=== PATIENT | male | born 1960 | race Caucasian/White ===

== ENCOUNTER → 2017-10-18 16:14 | Outpatient (CLI) | payer OTHER, SELFPAY ==
[2017-10-18 18:25] LABS: PSA,Total - Annual Screen 0.33 ng/mL (0.00-4.00)
== END ==
PROVIDERS: Family Provider Family Medicine; PCP Family Medicine
DX: D40.0 Neoplasm of uncertain behavior of prostate (principal)
CPT/HCPCS: 36415; 84153; G0103

== ENCOUNTER → 2018-07-01 14:52 | Outpatient (CLI) | payer OTHER, SELFPAY ==
[2018-07-01 17:54] LABS: Prothrombin Time (Protime)PT. 13.3 SECONDS (11.7-14.9)
[2018-07-01 17:59] LABS: ALB/GLOB Ratio 1.2 RATIO (0.9-2.4); AST(SGOT) 19 U/L (15-37); Absolute Lymphocyte Count 1.43 X10^3/ul (0.83-4.51); Absolute Neutrophil Count 2.9 X10^3/uL (2.0-7.7); Alanine Aminotransfer ALT/SGPT 25 U/L (16-61); Alkaline Phosphatase 103 U/L (45-117); Anion Gap 10 (5-15); BUN 24 mg/dL (7-18); BUN/Creat Ratio 16.4 RATIO (10-20); Basophil# 0.02 X10^3/uL; Basophil% 0.4 % (0-1); Calcium,Total 9.1 mg/dL (8.5-10.1); Chloride 107 mmol/L (98-107); Creatinine, Serum 1.46 mg/dL (0.70-1.30); EST Glomerular Filtration Rate 52 mL/min (>60); Eosinophils% 1.9 % (0-5); Est Glom Filt Rate - Afr Amer 63 mL/min (>60); Globulin 3.2 g/dL (2.2-4.2); Glucose 81 mg/dL (74-106); Hematocrit 41.6 % (40-54); Hemoglobin 13.7 g/dl (13.0-16.5); Lymphocyte # 1.43 X10^3/ul (4.0); Lymphocyte % 27.5 % (19-41); Mean Corp Hgb Conc 32.9 g/gl (32-36); Mean Corpuscular Hgb 30.5 pg (27.0-32.0); Mean Corpuscular Volume 92.7 fL (80-94); Mean Platelet Vol. 9.5 fl (6.2-12.0); Monocyte# 0.71 X10^3/uL; Monocyte% 13.7 % (0-10); Neutrophil # 2.94 X10^3/uL (2.7-7.7); Neutrophil % 56.5 % (47-70); Platelet Count 201 K/mm3 (150-450); Potassium 3.8 mmol/L (3.5-5.1); Protein, Total 7.2 g/dL (6.4-8.2); RBC Distribution Width CV 12.9 % (11.6-14.6); RBC Distribution Width SD 43.4 fl (35.1-43.9); Red Blood Count 4.49 M/mm3 (4.6-6.2); Sodium Level 141 mmol/L (136-145); White Blood Count 5.2 K/mm3 (4.4-11.0)
[2018-07-01 18:12] LABS: POSITIVE COUNT NO; POSITIVE DIFFERENTIAL NO; POSITIVE MORPHOLOGY NO
[2018-07-01 18:20] LABS: Erythrocyte Sedimentation Rate 19 mm/hr (0-20)
[2018-07-04 15:52] LABS: ANTINUCLEAR ANTIBODIES DIRECT Positive (Negative)
== END ==
PROVIDERS: Family Provider Family Medicine; PCP Family Medicine; Visit Provider Family Medicine
DX: R94.4 Abnormal results of kidney function studies (principal); R23.3 Spontaneous ecchymoses
CPT/HCPCS: 36415; 80053; 85025; 85610; 85652; 85730; 86038

== ENCOUNTER → 2018-07-20 16:18 | Outpatient (CLI) | payer OTHER, SELFPAY ==
[2016-02-03 06:23] VITALS: BMI 23.7
[2018-07-20 19:38] LABS: Ferritin 279 ng/mL (26-388); Thyroid Stim Hormone (TSH) 2.63 uIU/mL (0.358-3.74)
[2018-07-22 14:48] LABS: Anti-Centromere B Ab <0.2 AI (0.0-0.9); Anti-Chromatin <0.2 AI (0.0-0.9); Anti-Jo <0.2 AI (0.0-0.9); Anti-Scleroderma-70 AB <0.2 AI (0.0-0.9); Anti-ribosomal P Antibodies <0.2 AI (0.0-0.9); RNP Ab <0.2 AI (0.0-0.9); SJOGREN'S Anti-SS-A test < 0.2 AI (0.0-0.9); SJOGREN'S Anti-SS-B test 1.3 AI (0.0-0.9); Smith Ab <0.2 AI (0.0-0.9); Smith/RNP Ab <0.2 AI (0.0-0.9)
[2018-07-22 15:01] LABS: Anti-dsDNA Ab <1 IU/mL (0-9)
--- OUTSIDE RECORDS SUMMARY | 2018-09-05 21:53 | XMS RPT_ITS ---
:1960 Author Organization OHIP Care Team Providers Name Role Phone Aakash Stafford Attending Unavailable Aakash Stafford Primary Care Unavailable VINAY HOOK Attending Unavailable VINAY HOOK Referring Unavailable Aakash Stafford Primary Care Unavailable Hakeem Leon Attending Unavailable Aakash Stafford Primary Care Unavailable PROBLEMS PROBLEMS DATE TYPE CONDITION / CODE ATTENDING STATUS SOURCE 07/20/2018 Unknown I73.00 - Raynaud's Aakash Stafford Active [place] syndrome without [facility] gangrene / Hospital I73.00(ICD-10) Repository 07/20/2018 Unknown R76.8 - Other Stafford, Aakash Active [place] specified abnormal Community [facility] Hospital findings in serum / Repository R76.8(ICD-10) 10/18/2017 Unknown 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 [place], [place], [address] FERRITIN Collected: 07/20/2018 Status: F Source: [place] 4:19 PM [facility] REPOSITORY TYPE CODE TESTS RESULT OUT OF RANGE REFERENCE UNITS LAB L503.6550 26-388 ng/mL Normal FERRITIN 279 Performed By: #### L501.9520, L503.6550 #### [facility] [address] [place], [address] TONY W/COMPREHENSIVE Collected: 07/20/2018 Status: F Source: [place] 4:19 PM [facility] REPOSITORY TYPE CODE TESTS RESULT OUT OF RANGE REFERENCE UNITS LAB L3100.5500 0-9 IU/mL Normal dsDNA AB <1 Result Comment: Negative <5 Equivocal 5 - 9 Positive >9 LAB L3100.9200 0.0-0.9 AI Anti-SS-A Normal < 0.2 LAB L3100.9300 0.0-0.9 AI Anti-SS-B High 1.3 LAB L3100.9400 0.0-0.9 AI Anti-P Normal <0.2 LAB L3410.0427 0.0-0.9 AI ANTICHROMATIN Normal <0.2 LAB L3410.0500 0.0-0.9 AI ANTI-MARCE Normal <0.2 LAB L3410.0700 0.0-0.9 AI ANTISCLER Normal <0.2 LAB L3410.1200 0.0-0.9 AI OPTICAL DESIGN ENGINEER Ab Normal <0.2 LAB L3410.1300 0.0-0.9 AI STAFFORD Ab Normal <0.2 LAB L3410.1310 0.0-0.9 AI STAFFORD/OPTICAL DESIGN ENGINEER Ab Normal <0.2 LAB L3410.4010 0.0-0.9 AI ANTI-CENT B Normal <0.2 LAB L3410.4100 . COMMENT Normal Comment Result Comment: Autoantibody Disease Association Condition Frequency Antinuclear Antibody, SLE, mixed connective Direct (TONY-D) tissue diseases dsDNA SLE 40 - 60% Chromatin Drug induced SLE 90% SLE 48 - 97% SSA (Ro) SLE 25 - 35% Sjogren's Syndrome 40 - 70% Lupus 100% SSB (La) SLE 10% Sjogren's Syndrome 30% Sm (anti-Stafford) SLE 15 - 30% OPTICAL DESIGN ENGINEER Mixed Connective Tissue Disease 95% (U1 nRNP, SLE 30 - 50% anti-ribonucleoprotein) Polymyositis and/or Dermatomyositis 20% Scl-70 (antiDNA Scleroderma (diffuse) 20 - 35% topoisomerase) Crest 13% Marce-1 Polymyositis and/or Dermatomyositis 20 - 40% Centromere B Scleroderma - Crest variant 80% Ribosomal P SLE 10 - 20% Performed at: - [facility] [id number] [employer] Development: Sunday Bain PhD, Phone: [phone] Performed By: #### L3100.5430 #### [facility] (refer to report for specific site) refer to report for address and phone number COMPREHENSIVE METABOLIC Collected: 07/01/2018 Status: F Source: [place] PROFIL 2:53 PM [facility] REPOSITORY TYPE CODE TESTS RESULT OUT OF RANGE REFERENCE UNITS LAB L501.0100 74-106 mg/dL Normal GLU 81 Result Comment: Please note revised GLUCOSE reference range effective 2017. LAB L501.1000 7-18 mg/dL High BUN 24 LAB L501.1100 0.70-1.30 mg/dL High CREAT,SERUM 1.46 Result Comment: The validity of the calculated GFR AND GFRAA in patients over 70 years has not been determined. Clinical correlation is essential. LAB L501.1110 >60 mL/min Low EST GFR 52 Result Comment: Non- GFR Calc LAB L501.1115 >60 mL/min Normal EST GFR - AA 63 Result Comment: GFR Calc LAB L501.1300 10-20 RATIO Normal BUN/CRE 16.4 LAB L501.1500 6.4-8.2 g/dL T Normal PROT 7.2 LAB L501.1800 3.2-5.0 g/dL Normal ALB 4.0 LAB L501.1950 2.2-4.2 g/dL Normal GLOB 3.2 LAB L501.2000 0.9-2.4 RATIO Normal A/G 1.2 LAB L501.2200 8.5-10.1 mg/dL CA Normal 9.1 LAB L501.4100 15-37 U/L Normal AST 19 LAB L501.4305 45-117 U/L Normal ALK P 103 LAB L501.4405 16-61 U/L Normal ALT 25 LAB L501.4600 0.20-1.00 mg/dL T Normal BILI 0.40 LAB L501.5300 136-145 mmol/L NA Normal 141 LAB L501.5600 3.5-5.1 mmol/L K Normal 3.8 LAB L501.5900 98-107 mmol/L CL Normal 107 LAB L501.6100 21.0-32.0 mmol/L Normal CO2 24.0 LAB L501.6200 5-15 Normal GAP 10 Performed By: #### L500.4050, L300.3900, L300.4310, L100.0100, L101.9900 #### [facility] [address] [place], [place], [address] #### L3100.5475 #### [facility] (refer to report for specific site) refer to report for address and phone number PROTHROMBIN TIME W/INR Collected: 07/01/2018 Status: F Source: [place] 2:53 PM [facility] REPOSITORY TYPE CODE TESTS RESULT OUT OF RANGE REFERENCE UNITS LAB L300.4150 11.7-14.9 SECONDS Normal PROTIME 13.3 LAB L300.4200 Normal INR 1.0 Performed By: #### L500.4050, L300.3900, L300.4310, L100.0100, L101.9900 #### [facility] [address] [place], [address] #### L3100.5475 #### [facility] (refer to report for specific site) refer to report for address and phone number PARTIAL THROMBOPLAST Collected: 07/01/2018 Status: F Source: [place] TIME 2:53 PM [facility] REPOSITORY TYPE CODE TESTS RESULT OUT OF RANGE REFERENCE UNITS LAB L300.4310 24.1-36.2 Seconds Normal PTT 31.0 Performed By: #### L500.4050, L300.3900, L300.4310, L100.0100, L101.9900 #### [facility] [address] [place], [address] #### L3100.5475 #### [facility] (refer to report for specific site) refer to report for address and phone number CBC W/DIFF, AUTOMATED Collected: 07/01/2018 Status: F Source: [place] 2:53 PM [facility] REPOSITORY TYPE CODE TESTS RESULT OUT OF RANGE REFERENCE UNITS LAB L100.1000 4.4-11.0 K/mm3 Normal WBC 5.2 LAB L100.1200 4.6-6.2 M/mm3 Low RBC 4.49 LAB L100.1300 13.0-16.5 g/dl Normal HGB 13.7 LAB L100.1400 40-54 % Normal HCT 41.6 LAB L100.1500 80-94 fL Normal MCV 92.7 LAB L100.1600 27.0-32.0 pg Normal MCH 30.5 LAB L100.1700 32-36 g/gl Normal MCHC 32.9 LAB L100.1810 11.6-14.6 % Normal RDW CV 12.9 LAB L100.1820 35.1-43.9 fl Normal RDW SD 43.4 LAB L100.1900 150-450 K/mm3 Normal PLT 201 LAB L100.2000 6.2-12.0 fl Normal MPV 9.5 LAB L100.2100 47-70 % Normal NEUT% 56.5 LAB L100.2200 19-41 % Normal LY% 27.5 LAB L100.2300 0-10 % High MONO% 13.7 LAB L100.2400 0-5 % Normal EO% 1.9 LAB L100.2500 0-1 % Normal BASO% 0.4 LAB L100.2550 0.0-0.9 % Normal IM GRAN % 0.000 Result Comment: IG% - Immature Granulocytes (promyelocytes, myelocytes and metamyelocytes) > 1% indicates that a LEFT SHIFT is Present. LAB L100.2620 2.0-7.7 X10 3/uL Normal Absolute Neut 2.9 LAB L100.2720 0.83-4.51 X10 3/ul Normal Absolute Lymph 1.43 Performed By: #### L500.4050, L300.3900, L300.4310, L100.0100, L101.9900 #### [facility] [place], [address] #### L3100.5475 #### [facility] (refer to report for specific site) refer to report for address and phone number ERYTHROCYTE SED RATE Collected: 07/01/2018 Status: F Source: [place] 2:53 PM [facility] REPOSITORY TYPE CODE TESTS RESULT OUT OF RANGE REFERENCE UNITS LAB L102.0000 0-20 mm/hr Normal SED RATE 19 Performed By: #### L500.4050, L300.3900, L300.4310, L100.0100, L101.9900 #### [facility] [address] [facility] [place], [address] #### L3100.5475 #### [facility] (refer to report for specific site) refer to report for address and phone number ANTINUCLEAR ANTIBODIES Collected: 07/01/2018 Status: F Source: [place] DIRECT 2:53 PM [facility] REPOSITORY TYPE CODE TESTS RESULT OUT OF REFERENCE UNITS RANGE LAB L3100.5475 Negative High Positive TONY-DIRECT Result Comment: Performed at: [facility] [id number] Teacher [employer] Child[employer] Development: Sunday Bain PhD, Phone: [phone] Performed By: #### L500.4050, L300.3900, L300.4310, L100.0100, L101.9900 #### [facility] [address] [place], [place], [address] #### L3100.5475 #### [facility] (refer to report for specific site) refer to report for address and phone number PSA,TOTAL - ANNUAL Collected: 10/18/2017 Status: F Source: [place] SCREEN 4:34 PM [facility] REPOSITORY TYPE CODE TESTS RESULT OUT OF RANGE REFERENCE UNITS LAB L501.9910 0.00-4.00 ng/mL Normal PSA,TOT 0.33 SCREEN Result Comment: This test was performed using the TPSA assay method for the finalsite chemistry system. Values obtained with different assay methods cannot be used interchangably. When changing PSA assays in the course of monitoring a patient, additional sequential testing should be carried out to confirm baseline values. Performed By: #### L501.9910 #### [facility] [address] [facility] [place], [address] ALLERGIES ALLERGIES DATE TYPE / CODE NAME / CODE REACTION SEVERITY SOURCE 02/03/2016 Drug No Known Unknown [facility] Allergy/4160 Allergies/F00 [facility] 94231(SNOMED [id number](RXNOR Repository CT) M) ENCOUNTERS ENCOUNTERS ADMIT/DISCHARGE ACCOUNT ADMITTING ENCOUNTER LOCATION SOURCE NUMBER CLASS 07/20/2018 [id number] [facility] [place] 2 [facility] ing:MFPLAB Repository 07/01/2018 [id number] [facility] [place] 7 [facility] ing:MFPLAB Repository 10/18/2017 [id number] [facility] [place] 3 [facility] ing:LAB Repository PAYERS PAYERS ENCOUNTER GUARANTOR PAYER SUBSCRIBER SOURCE 07/20/2018 Gareth Jacob Primary Gareth S [place] [id number] Insurance:[facility] [place] [place] [facility] Number: [id number] [id number]: [phone] [id number] Repository [phone] () Date:[id number] [address]EQ: 07/20/2018 Secondary NOT GIVENUNK [place] Insurance:SELF PAY [facility] Number: Effective Repository Date:2018-07-20 07/01/2018 Gareth Jacob Primary Gareth Roa [id number] Insurance:AULTCAREPol HimaugDOB: [place] icy Number: [id number] [address]Lht: 330 [id number] Repository [phone] () Date:[id number] [facility] [address] [place] [address]GG: 07/01/2018 Secondary NOT GIVENUNK [place] Insurance:SELF PAY [facility] Number: Effective Repository Date:2018-07-01 10/18/2017 Gareth S Primary Gareth Roa [id number] [place] Insurance:AULTCAREPol [place]D[facility] [place] Number: [id number] [address]Ics: [phone] [id number] Repository [phone] () Date:[id number] [address] [address]ZC: 10/18/2017 Secondary NOT GIVENUNK [place] Insurance:SELF PAY [facility] Number: Effective Repository Date:2017-10-18
== END ==
PROVIDERS: Family Provider Family Medicine; PCP Family Medicine; Visit Provider Family Medicine
DX: I73.00 Raynaud's syndrome without gangrene (principal); R76.8 Other specified abnormal immunological findings in serum
CPT/HCPCS: 36415; 82728; 84443; 86038; 86225; 86235

== ENCOUNTER → 2018-09-09 10:10 | Outpatient (CLI) | payer OTHER, SELFPAY ==
[2018-09-09 11:19] LABS: EXAGEN MAILED SPECIMEN
[2018-09-09 12:11] LABS: Absolute Lymphocyte Count 1.39 X10^3/ul (0.83-4.51); Absolute Neutrophil Count 2.5 X10^3/uL (2.0-7.7); Basophil# 0.03 X10^3/uL; Basophil% 0.7 % (0-1); Color, Urine Yellow (Yellow); Eosinophil# 0.14 X10^3/uL; Eosinophils% 3.1 % (0-5); Glucose, Dipstick Normal (Normal); Hematocrit 43.8 % (40-54); Hemoglobin 14.7 g/dl (13.0-16.5); Ketone-Dipstick Negative (Negative); Leukocyte Esterase-Dipstick Negative /ul (Negative); Lymphocyte # 1.39 X10^3/ul (4.0); Lymphocyte % 30.8 % (19-41); Mean Corp Hgb Conc 33.6 g/gl (32-36); Mean Corpuscular Hgb 31.1 pg (27.0-32.0); Mean Corpuscular Volume 92.6 fL (80-94); Mean Platelet Vol. 9.4 fl (6.2-12.0); Monocyte# 0.49 X10^3/uL; Monocyte% 10.8 % (0-10); Neutrophil # 2.47 X10^3/uL (2.7-7.7); Neutrophil % 54.6 % (47-70); Nitrite-Dipstick Negative (Negative); Occult Blood-Urine 25 /ul (Negative); Platelet Count 200 K/mm3 (150-450); Protein-Dipstick Negative (Negative); RBC Distribution Width CV 13.1 % (11.6-14.6); RBC Distribution Width SD 43.3 fl (35.1-43.9); Red Blood Count 4.73 M/mm3 (4.6-6.2); Specific Gravity, Urine 1.015 (1.002-1.030); Urine Bilirubin Dipstick Negative (Negative); Urine Clarity Clear (Clear); Urine Urobilinogen Normal (Normal); White Blood Count 4.5 K/mm3 (4.4-11.0)
[2018-09-09 12:13] LABS: POSITIVE COUNT NO; POSITIVE DIFFERENTIAL NO; POSITIVE MORPHOLOGY NO
[2018-09-09 12:34] LABS: ALB/GLOB Ratio 1.3 RATIO (0.9-2.4); AST(SGOT) 18 U/L (15-37); Alanine Aminotransfer ALT/SGPT 22 U/L (16-61); Albumin, Serum 4.1 g/dL (3.2-5.0); Alkaline Phosphatase 92 U/L (45-117); Anion Gap 9 (5-15); BUN 28 mg/dL (7-18); BUN/Creat Ratio 21.1 RATIO (10-20); CRP < 2.90 mg/L (0.0-3.0); Chloride 106 mmol/L (98-107); Creatinine, Serum 1.33 mg/dL (0.70-1.30); EST Glomerular Filtration Rate 58 mL/min (>60); Est Glom Filt Rate - Afr Amer 70 mL/min (>60); Globulin 3.2 g/dL (2.2-4.2); Glucose 83 mg/dL (74-106); Potassium 4.3 mmol/L (3.5-5.1); Protein, Total 7.3 g/dL (6.4-8.2); Sodium Level 142 mmol/L (136-145)
[2018-09-09 13:14] LABS: Protein, Urine (Random) < 6.0 mg/dL (<11.9)
== END ==
PROVIDERS: Family Provider Family Medicine; PCP Family Medicine; Referring Provider Internal Medicine Rheumatology; Visit Provider Internal Medicine Rheumatology
DX: M06.4 Inflammatory polyarthropathy (principal); R76.8 Other specified abnormal immunological findings in serum; T69.1XXA Chilblains, initial encounter; K21.9 Gastro-esophageal reflux disease without esophagitis
CPT/HCPCS: 36415; 80053; 81002; 82570; 84156; 85025; 86140

== ENCOUNTER → 2018-11-07 14:40 | Outpatient (CLI) | payer OTHER, SELFPAY ==
--- NOTE | 2018-11-07 14:57 | CT_ITS ---
STUDY: CT CHEST WITHOUT CONTRAST REASON FOR EXAM: Male, 58 years old. Thoracic aneurysm. Left lung surgery and right nephrectomy. RADIATION DOSAGE (If Supplied By Facility): CTDIvol = ( 9.73 ) mGy, DLP = ( 309.41 ) mGycm TECHNIQUE: Transaxial imaging was performed without the administration of intravenous contrast material. Multiplanar coronal and sagittal images were reformatted. Individualized dose optimization techniques were used for this CT. COMPARISON: December 12, 2016. FINDINGS: The lungs are well-expanded is minimal apical pleural scarring. There is linear scarring with calcification in the anterior left upper lobe. There is no mass or infiltrate. There is no pneumothorax. There is no demonstrated pleural abnormality. Normal heart and pericardium. There are calcifications of the coronary arteries. There is nonspecific subcentimeter mediastinal lymphadenopathy. There is a calcified node in the precarinal space. Normal hilar regions. Normal unenhanced pulmonary arteries. The ascending thoracic aorta measures 4.5 x 4.4 cm at the level of the right pulmonary artery (image 111, series 2). This tapers into the arch with minimal atherosclerotic changes. There are multi-level degenerative changes of the thoracic spine. There is no demonstrated abnormality of the visualized upper abdomen. CT/Chest without Contrast IMPRESSION: 1. No acute abnormality or interval change. 2. Stable thoracic aortic aneurysm. Electronically Signed: Darinel De La O DO at 16:02 EDT Tel [phone], Service support ,
== END ==
PROVIDERS: Family Provider Family Medicine; PCP Family Medicine; Referring Provider Family Medicine; Visit Provider Family Medicine
DX: I71.2 Thoracic aortic aneurysm, without rupture (principal)
CPT/HCPCS: 71250

== ENCOUNTER → 2018-12-27 10:18 | Outpatient (CLI) | payer OTHER, SELFPAY ==
[2016-02-03 06:23] VITALS: BMI 23.7
--- NOTE | 2018-12-27 10:23 | RAD_ITS ---
STUDY: X-RAY - PELVIS REASON FOR EXAM: Male, 58 years old. Inflammatory polyarthropathy TECHNIQUE: One view of the pelvis was obtained. COMPARISON: None. FINDINGS: There is a non-specific bowel gas pattern. Normal visualized soft tissue structures. Normal bilateral iliac wings, sacroiliac joints and visualized sacrum. Normal visualized bilateral superior and inferior pubic rami. Normal pubic symphysis. Normal ischial tuberosities. There are mild arthritic changes of the left and right hips. There is no evidence of fracture, dislocation, or lytic or blastic osseous process. RAD/Pelvis 1 or 2 Views IMPRESSION: Mild osteoarthritic changes of the hips. Electronically Signed: David Mon MD at 23:23 EDT , Service support ,
[2018-12-27 12:21] LABS: Absolute Lymphocyte Count 1.44 X10^3/ul (0.83-4.51); Absolute Neutrophil Count 2.8 X10^3/uL (2.0-7.7); Basophil# 0.02 X10^3/uL; Basophil% 0.4 % (0-1); Eosinophil# 0.14 X10^3/uL; Eosinophils% 2.8 % (0-5); Hematocrit 43.5 % (40-54); Hemoglobin 14.9 g/dl (13.0-16.5); Lymphocyte # 1.44 X10^3/ul (4.0); Lymphocyte % 28.6 % (19-41); Mean Corp Hgb Conc 34.3 g/gl (32-36); Mean Corpuscular Hgb 31.2 pg (27.0-32.0); Mean Platelet Vol. 9.3 fl (6.2-12.0); Monocyte# 0.66 X10^3/uL; Monocyte% 13.1 % (0-10); Neutrophil # 2.77 X10^3/uL (2.7-7.7); Neutrophil % 55.1 % (47-70); POSITIVE COUNT NO; POSITIVE DIFFERENTIAL NO; POSITIVE MORPHOLOGY NO; Platelet Count 191 K/mm3 (150-450); RBC Distribution Width CV 12.7 % (11.6-14.6); RBC Distribution Width SD 42.5 fl (35.1-43.9); Red Blood Count 4.78 M/mm3 (4.6-6.2)
[2018-12-27 13:23] LABS: ALB/GLOB Ratio 1.3 RATIO (0.9-2.4); AST(SGOT) 20 U/L (15-37); Alanine Aminotransfer ALT/SGPT 22 U/L (16-61); Albumin, Serum 4.1 g/dL (3.2-5.0); Alkaline Phosphatase 94 U/L (45-117); Anion Gap 6 (5-15); BUN 14 mg/dL (7-18); BUN/Creat Ratio 9.9 RATIO (10-20); Calcium,Total 9.3 mg/dL (8.5-10.1); Chloride 106 mmol/L (98-107); Creatinine, Serum 1.42 mg/dL (0.70-1.30); EST Glomerular Filtration Rate 54 mL/min (>60); Est Glom Filt Rate - Afr Amer 65 mL/min (>60); Globulin 3.2 g/dL (2.2-4.2); Glucose 72 mg/dL (74-106); Potassium 3.6 mmol/L (3.5-5.1); Protein, Total 7.3 g/dL (6.4-8.2); Sodium Level 141 mmol/L (136-145)
== END ==
PROVIDERS: Family Provider Family Medicine; PCP Family Medicine; Referring Provider Internal Medicine Rheumatology; Visit Provider Internal Medicine Rheumatology
DX: R76.8 Other specified abnormal immunological findings in serum (principal); M06.4 Inflammatory polyarthropathy; T69.1XXA Chilblains, initial encounter; K21.9 Gastro-esophageal reflux disease without esophagitis
CPT/HCPCS: 36415; 72170; 80053; 85025

== ENCOUNTER → 2019-04-17 07:42 | Outpatient (CLI) | payer OTHER, SELFPAY ==
[2016-02-03 06:23] VITALS: BMI 23.7
[2019-04-17 08:46] LABS: Absolute Lymphocyte Count 1.25 X10^3/uL (0.83-4.51); Absolute Neutrophil Count 2.3 X10^3/uL (2.0-7.7); Basophil# 0.03 X10^3/uL; Basophil% 0.7 % (0-1); Eosinophil# 0.11 X10^3/uL; Eosinophils% 2.6 % (0-5); Hematocrit 43.8 % (40-54); Hemoglobin 14.6 g/dL (13.0-16.5); Lymphocyte # 1.25 X10^3/ul (4.0); Lymphocyte % 29.1 % (19-41); Mean Corp Hgb Conc 33.3 g/dL (32-36); Mean Corpuscular Hgb 31.3 pg (27.0-32.0); Mean Platelet Vol. 9.1 fl (6.2-12.0); Monocyte# 0.62 X10^3/uL; Monocyte% 14.5 % (0-10); NRBC Flagged by Analyzer 0 % (0-5); Neutrophil # 2.27 X10^3/uL (2.7-7.7); Neutrophil % 52.9 % (47-70); Platelet Count 178 K/mm3 (150-450); RBC Distribution Width CV 12.3 % (11.6-14.6); RBC Distribution Width SD 42.5 fl (35.1-43.9); Red Blood Count 4.66 M/mm3 (4.6-6.2); White Blood Count 4.3 K/mm3 (4.4-11.0)
[2019-04-17 09:11] LABS: ALB/GLOB Ratio 1.2 RATIO (0.9-2.4); AST(SGOT) 18 U/L (15-37); Alanine Aminotransfer ALT/SGPT 18 U/L (16-61); Albumin, Serum 3.8 g/dL (3.2-5.0); Alkaline Phosphatase 85 U/L (45-117); Anion Gap 5 (5-15); BUN 28 mg/dL (7-18); BUN/Creat Ratio 19.9 RATIO (10-20); Calcium,Total 8.9 mg/dL (8.5-10.1); Chloride 107 mmol/L (98-107); Creatinine, Serum 1.41 mg/dL (0.70-1.30); EST Glomerular Filtration Rate 54 mL/min (>60); Est Glom Filt Rate - Afr Amer 66 mL/min (>60); Globulin 3.1 g/dL (2.2-4.2); Glucose 91 mg/dL (74-106); Potassium 4.3 mmol/L (3.5-5.1); Protein, Total 6.9 g/dL (6.4-8.2); Sodium Level 140 mmol/L (136-145)
== END ==
PROVIDERS: Family Provider Family Medicine; PCP Family Medicine; Referring Provider Internal Medicine Rheumatology; Visit Provider Internal Medicine Rheumatology
DX: R76.8 Other specified abnormal immunological findings in serum (principal); M06.4 Inflammatory polyarthropathy; T69.1XXA Chilblains, initial encounter; K21.9 Gastro-esophageal reflux disease without esophagitis
CPT/HCPCS: 36415; 80053; 85025

== ENCOUNTER → 2019-06-10 09:11 | Outpatient (CLI) | payer OTHER, SELFPAY ==
[2016-02-03 06:23] VITALS: BMI 23.7
[2019-06-10 10:09] LABS: Absolute Lymphocyte Count 1.15 X10^3/uL (0.83-4.51); Absolute Neutrophil Count 2.1 X10^3/uL (2.0-7.7); Basophil# 0.02 X10^3/uL; Basophil% 0.5 % (0-1); Eosinophil# 0.09 X10^3/uL; Eosinophils% 2.3 % (0-5); Hematocrit 42.1 % (40-54); Hemoglobin 14.1 g/dL (13.0-16.5); Lymphocyte # 1.15 X10^3/ul (4.0); Lymphocyte % 29.2 % (19-41); Mean Corp Hgb Conc 33.5 g/dL (32-36); Mean Corpuscular Hgb 31.5 pg (27.0-32.0); Mean Platelet Vol. 9.1 fl (6.2-12.0); Monocyte# 0.53 X10^3/uL; Monocyte% 13.5 % (0-10); NRBC Flagged by Analyzer 0 % (0-5); Neutrophil # 2.14 X10^3/uL (2.7-7.7); Neutrophil % 54.2 % (47-70); Platelet Count 172 K/mm3 (150-450); RBC Distribution Width CV 13.1 % (11.6-14.6); RBC Distribution Width SD 44.5 fl (35.1-43.9); Red Blood Count 4.48 M/mm3 (4.6-6.2); White Blood Count 3.9 K/mm3 (4.4-11.0)
[2019-06-10 10:36] LABS: ALB/GLOB Ratio 1.3 RATIO (0.9-2.4); AST(SGOT) 18 U/L (15-37); Alanine Aminotransfer ALT/SGPT 18 U/L (16-61); Albumin, Serum 3.9 g/dL (3.2-5.0); Alkaline Phosphatase 79 U/L (45-117); Anion Gap 3 (5-15); BUN 19 mg/dL (7-18); BUN/Creat Ratio 12.3 RATIO (10-20); Calcium,Total 9.2 mg/dL (8.5-10.1); Chloride 107 mmol/L (98-107); Creatinine, Serum 1.54 mg/dL (0.70-1.30); EST Glomerular Filtration Rate 49 mL/min (>60); Est Glom Filt Rate - Afr Amer 59 mL/min (>60); Glucose 106 mg/dL (74-106); Potassium 4.5 mmol/L (3.5-5.1); Protein, Total 6.9 g/dL (6.4-8.2); Sodium Level 140 mmol/L (136-145)
== END ==
PROVIDERS: Family Provider Family Medicine; PCP Family Medicine; Referring Provider Internal Medicine Rheumatology; Visit Provider Internal Medicine Rheumatology
DX: M06.4 Inflammatory polyarthropathy (principal); T69.1XXA Chilblains, initial encounter; K21.9 Gastro-esophageal reflux disease without esophagitis; R76.8 Other specified abnormal immunological findings in serum
CPT/HCPCS: 36415; 80053; 85025

== ENCOUNTER → 2019-09-08 13:04 | Outpatient (CLI) | payer OTHER, SELFPAY ==
[2016-02-03 06:23] VITALS: BMI 23.7
[2019-09-08 13:39] LABS: Absolute Neutrophil Count 3.4 X10^3/uL (2.0-7.7); Basophil# 0.02 X10^3/uL; Basophil% 0.4 % (0-1); Eosinophil# 0.11 X10^3/uL; Hemoglobin 14.1 g/dL (13.0-16.5); Mean Corp Hgb Conc 33.6 g/dL (32-36); Mean Corpuscular Hgb 31.2 pg (27.0-32.0); Mean Corpuscular Volume 92.9 fL (80-94); Mean Platelet Vol. 9.2 fl (6.2-12.0); Monocyte# 0.53 X10^3/uL; Monocyte% 9.5 % (0-10); NRBC Flagged by Analyzer 0 % (0-5); Neutrophil % 61.1 % (47-70); Platelet Count 194 K/mm3 (150-450); RBC Distribution Width CV 12.3 % (11.6-14.6); RBC Distribution Width SD 42.2 fl (35.1-43.9); Red Blood Count 4.52 M/mm3 (4.6-6.2); White Blood Count 5.6 K/mm3 (4.4-11.0)
[2019-09-08 14:20] LABS: ALB/GLOB Ratio 1.3 RATIO (0.9-2.4); AST(SGOT) 19 U/L (15-37); Alanine Aminotransfer ALT/SGPT 24 U/L (16-61); Albumin, Serum 3.9 g/dL (3.2-5.0); Alkaline Phosphatase 86 U/L (45-117); Anion Gap 3 (5-15); BUN 22 mg/dL (7-18); BUN/Creat Ratio 14.7 RATIO (10-20); Calcium,Total 9.3 mg/dL (8.5-10.1); Chloride 105 mmol/L (98-107); EST Glomerular Filtration Rate 51 mL/min (>60); Est Glom Filt Rate - Afr Amer 61 mL/min (>60); Globulin 3.1 g/dL (2.2-4.2); Glucose 81 mg/dL (74-106); Sodium Level 138 mmol/L (136-145)
== END ==
PROVIDERS: PCP Family Medicine; Referring Provider Internal Medicine Rheumatology; Visit Provider Internal Medicine Rheumatology
DX: M06.4 Inflammatory polyarthropathy (principal); R76.8 Other specified abnormal immunological findings in serum
CPT/HCPCS: 36415; 80053; 85025

== ENCOUNTER → 2019-10-02 16:49 | Outpatient (CLI) | payer OTHER, SELFPAY ==
[2016-02-03 06:23] VITALS: BMI 23.7
[2019-10-02 18:08] LABS: PSA,Total - Annual Screen 0.34 ng/mL (0.00-4.00)
== END ==
PROVIDERS: PCP Family Medicine
DX: D40.0 Neoplasm of uncertain behavior of prostate (principal)
CPT/HCPCS: 36415; 84153; G0103

== ENCOUNTER → 2020-03-02 08:10 | Outpatient (CLI) | payer OTHER, SELFPAY ==
[2016-02-03 06:23] VITALS: BMI 23.7
[2020-03-02 09:44] LABS: ALB/GLOB Ratio 1.2 RATIO (0.9-2.4); AST(SGOT) 15 U/L (15-37); Alanine Aminotransfer ALT/SGPT 21 U/L (16-61); Alkaline Phosphatase 89 U/L (45-117); Anion Gap 5 (5-15); BUN 15 mg/dL (7-18); BUN/Creat Ratio 10.9 RATIO (10-20); Chloride 102 mmol/L (98-107); Creatinine, Serum 1.38 mg/dL (0.70-1.30); EST Glomerular Filtration Rate 56 mL/min (>60); Est Glom Filt Rate - Afr Amer 67 mL/min (>60); Globulin 3.3 g/dL (2.2-4.2); Glucose 88 mg/dL (74-106); Potassium 4.3 mmol/L (3.5-5.1); Protein, Total 7.3 g/dL (6.4-8.2); Sodium Level 138 mmol/L (136-145)
== END ==
PROVIDERS: PCP Family Medicine; Referring Provider Internal Medicine Rheumatology; Visit Provider Internal Medicine Rheumatology
DX: R76.8 Other specified abnormal immunological findings in serum (principal); M06.4 Inflammatory polyarthropathy; K21.9 Gastro-esophageal reflux disease without esophagitis; T69.1XXA Chilblains, initial encounter
CPT/HCPCS: 36415; 80053

== ENCOUNTER → 2020-09-04 16:31 | Outpatient (CLI) | payer OTHER, SELFPAY ==
[2016-02-03 06:23] VITALS: BMI 23.7
[2020-09-04 17:29] LABS: Absolute Neutrophil Count 3.1 X10^3/uL (2.0-7.7); Basophil# 0.02 X10^3/uL; Basophil% 0.4 % (0-1); Eosinophil# 0.11 X10^3/uL; Eosinophils% 1.9 % (0-5); Hematocrit 43.3 % (40-54); Hemoglobin 14.4 g/dL (13.0-16.5); Lymphocyte % 31.7 % (19-41); Mean Corp Hgb Conc 33.3 g/dL (32-36); Mean Corpuscular Hgb 31.2 pg (27.0-32.0); Mean Corpuscular Volume 93.7 fL (80-94); Mean Platelet Vol. 9.3 fl (6.2-12.0); Monocyte# 0.64 X10^3/uL; Monocyte% 11.3 % (0-10); NRBC Flagged by Analyzer 0 % (0-5); Neutrophil % 54.5 % (47-70); Platelet Count 202 K/mm3 (150-450); RBC Distribution Width CV 12.3 % (11.6-14.6); RBC Distribution Width SD 42.8 fl (35.1-43.9); Red Blood Count 4.62 M/mm3 (4.6-6.2); White Blood Count 5.7 K/mm3 (4.4-11.0)
[2020-09-04 17:48] LABS: ALB/GLOB Ratio 1.2 RATIO (0.9-2.4); AST(SGOT) 20 U/L (15-37); Alanine Aminotransfer ALT/SGPT 23 U/L (16-61); Alkaline Phosphatase 84 U/L (45-117); Anion Gap 5 (5-15); BUN 19 mg/dL (7-18); BUN/Creat Ratio 13.8 RATIO (10-20); Calcium,Total 8.9 mg/dL (8.5-10.1); Chloride 104 mmol/L (98-107); Creatinine, Serum 1.38 mg/dL (0.70-1.30); EST Glomerular Filtration Rate 55 mL/min (>60); Est Glom Filt Rate - Afr Amer 67 mL/min (>60); Globulin 3.2 g/dL (2.2-4.2); Glucose 81 mg/dL (74-106); Potassium 4.1 mmol/L (3.5-5.1); Protein, Total 7.2 g/dL (6.4-8.2); Sodium Level 139 mmol/L (136-145)
== END ==
PROVIDERS: PCP Family Medicine; Referring Provider Internal Medicine Rheumatology; Visit Provider Internal Medicine Rheumatology
DX: M06.4 Inflammatory polyarthropathy (principal); R76.8 Other specified abnormal immunological findings in serum; K21.9 Gastro-esophageal reflux disease without esophagitis; T69.1XXA Chilblains, initial encounter
CPT/HCPCS: 36415; 80053; 85025

== ENCOUNTER → 2020-10-03 06:42 | Outpatient (CLI) | payer OTHER, SELFPAY ==
[2016-02-03 06:23] VITALS: BMI 23.7
[2020-10-03 08:18] LABS: PSA,Total- Diagnostic 0.39 ng/mL (0.0-4.0)
== END ==
PROVIDERS: PCP Family Medicine
DX: D40.0 Neoplasm of uncertain behavior of prostate (principal)
CPT/HCPCS: 36415; 84153

== ENCOUNTER → 2020-10-31 07:16 | Outpatient (CLI) | payer OTHER, SELFPAY ==
--- NOTE | 2020-10-31 07:20 | CT_ITS ---
STUDY: CT CHEST WITHOUT CONTRAST REASON FOR EXAM: Male, 60 years old. ANEURYSM OF THORACIC AORTA RADIATION DOSAGE (If Supplied By Facility): CTDIvol = ( 9.23 ) mGy, DLP = ( 350.51 ) mGycm TECHNIQUE: Transaxial imaging was performed without the administration of intravenous contrast material. Multiplanar coronal and sagittal images were reformatted. Individualized dose optimization techniques were used for this CT. COMPARISON: Comparison is made with prior study dated 11/07/2018. FINDINGS: Hyperinflation. Stable linear scarring with focal calcification in the anterior aspect of the left upper lobe. There is no demonstrated pleural abnormality. There are calcifications of the coronary arteries. Normal mediastinum. Normal hilar regions. Normal unenhanced pulmonary arteries. Stable dilatation of the ascending thoracic aorta with a transverse dimension of 4.5 cm. This tapers at the level of the aortic arch. There are degenerative changes of the thoracic spine. There is no demonstrated abnormality of the visualized upper abdomen. CT/Chest without Contrast IMPRESSION: Stable examination. Electronically Signed: Abimael Shanks MD at 11:14 EDT , Service support ,
== END ==
PROVIDERS: PCP Family Medicine; Referring Provider Family Medicine; Visit Provider Family Medicine
DX: I71.2 Thoracic aortic aneurysm, without rupture (principal)
CPT/HCPCS: 71250

== ENCOUNTER → 2021-07-16 17:29 | Outpatient (CLI) | payer OTHER, SELFPAY ==
[2021-07-16 18:06] LABS: Absolute Lymphocyte Count 1.42 X10^3/uL (0.83-4.51); Absolute Neutrophil Count 4.1 X10^3/uL (2.0-7.7); Basophil# 0.04 X10^3/uL; Basophil% 0.6 % (0-1); Eosinophil# 0.07 X10^3/uL; Eosinophils% 1.1 % (0-5); Hematocrit 41.8 % (40-54); Lymphocyte # 1.42 X10^3/ul (0.83-4.51); Lymphocyte % 22.8 % (19-41); Mean Corp Hgb Conc 33.5 g/dL (32-36); Mean Corpuscular Hgb 31.1 pg (27.0-32.0); Mean Corpuscular Volume 92.9 fL (80-94); Mean Platelet Vol. 8.8 fl (6.2-12.0); Monocyte# 0.58 X10^3/uL; Monocyte% 9.3 % (0-10); NRBC Flagged by Analyzer 0 % (0-5); Neutrophil # 4.11 X10^3/uL (2.7-7.7); Platelet Count 204 K/mm3 (150-450); RBC Distribution Width CV 12.5 % (11.6-14.6); White Blood Count 6.2 K/mm3 (4.4-11.0)
[2021-07-16 19:05] LABS: ALB/GLOB Ratio 1.3 RATIO (0.9-2.4); AST(SGOT) 20 U/L (15-37); Alanine Aminotransfer ALT/SGPT 27 U/L (16-61); Alkaline Phosphatase 92 U/L (45-117); Anion Gap 7 (5-15); BUN 19 mg/dL (7-18); BUN/Creat Ratio 13.5 RATIO (10-20); Calcium,Total 9.6 mg/dL (8.5-10.1); Chloride 107 mmol/L (98-107); Creatinine, Serum 1.41 mg/dL (0.70-1.30); EST Glomerular Filtration Rate 54 mL/min (>60); Est Glom Filt Rate - Afr Amer 65 mL/min (>60); Glucose 83 mg/dL (74-106); Potassium 4.3 mmol/L (3.5-5.1); Sodium Level 142 mmol/L (136-145)
== END ==
PROVIDERS: PCP Family Medicine; Visit Provider Internal Medicine Rheumatology
DX: M06.4 Inflammatory polyarthropathy (principal); R76.8 Other specified abnormal immunological findings in serum; T69.1XXA Chilblains, initial encounter; K21.9 Gastro-esophageal reflux disease without esophagitis
CPT/HCPCS: 36415; 80053; 85025

== ENCOUNTER → 2021-09-29 15:03 | Outpatient (CLI) | payer OTHER, SELFPAY ==
[2021-09-29 16:12] LABS: PSA,Total- Diagnostic 0.42 ng/mL (0.0-4.0)
== END ==
PROVIDERS: PCP Family Medicine
DX: D40.0 Neoplasm of uncertain behavior of prostate (principal)
CPT/HCPCS: 36415; 84153

== ENCOUNTER 2021-11-17 12:01 | Outpatient (CLI) | payer OTHER, SELFPAY ==
[2021-11-17 14:59] LABS: Absolute Lymphocyte Count 1.35 X10^3/uL (0.83-4.51); Absolute Neutrophil Count 3.5 X10^3/uL (2.0-7.7); Basophil# 0.03 X10^3/uL; Basophil% 0.5 % (0-1); Eosinophils% 1.8 % (0-5); Hematocrit 44.8 % (40-54); Hemoglobin 14.9 g/dL (13.0-16.5); Lymphocyte # 1.35 X10^3/ul (0.83-4.51); Lymphocyte % 24.4 % (19-41); Mean Corp Hgb Conc 33.3 g/dL (32-36); Mean Corpuscular Hgb 31.4 pg (27.0-32.0); Mean Corpuscular Volume 94.3 fL (80-94); Mean Platelet Vol. 9.3 fl (6.2-12.0); Monocyte# 0.58 X10^3/uL; Monocyte% 10.5 % (0-10); NRBC Flagged by Analyzer 0 % (0-5); Neutrophil # 3.45 X10^3/uL (2.7-7.7); Neutrophil % 62.4 % (47-70); Platelet Count 221 K/mm3 (150-450); RBC Distribution Width CV 12.7 % (11.6-14.6); RBC Distribution Width SD 44.1 fl (35.1-43.9); Red Blood Count 4.75 M/mm3 (4.6-6.2); White Blood Count 5.5 K/mm3 (4.4-11.0)
[2021-11-17 15:36] LABS: ALB/GLOB Ratio 1.4 RATIO (0.9-2.4); AST(SGOT) 21 U/L (15-37); Alanine Aminotransfer ALT/SGPT 28 U/L (16-61); Albumin, Serum 4.3 g/dL (3.2-5.0); Alkaline Phosphatase 83 U/L (45-117); Anion Gap 5 (5-15); BUN 17 mg/dL (7-18); BUN/Creat Ratio 12.9 RATIO (10-20); Chloride 104 mmol/L (98-107); Creatinine, Serum 1.32 mg/dL (0.70-1.30); EST Glomerular Filtration Rate 58 mL/min (>60); Est Glom Filt Rate - Afr Amer 70 mL/min (>60); Glucose 83 mg/dL (74-106); Potassium 4.2 mmol/L (3.5-5.1); Protein, Total 7.3 g/dL (6.4-8.2); Sodium Level 139 mmol/L (136-145)
== END 2021-11-17 23:59 | disposition home or self-care (01) ==
PROVIDERS: PCP Family Medicine; Referring Provider Internal Medicine Rheumatology; Visit Provider Internal Medicine Rheumatology
DX: M06.4 Inflammatory polyarthropathy (principal); R76.8 Other specified abnormal immunological findings in serum; K21.9 Gastro-esophageal reflux disease without esophagitis; Z90.5 Acquired absence of kidney
CPT/HCPCS: 36415; 80053; 85025

== ENCOUNTER → 2022-02-10 | Outpatient (CLI) | payer OTHER, SELFPAY ==
[2022-02-10 17:27] LABS: Absolute Lymphocyte Count 1.48 X10^3/uL (0.83-4.51); Basophil# 0.02 X10^3/uL; Basophil% 0.4 % (0-1); Eosinophil# 0.12 X10^3/uL; Eosinophils% 2.3 % (0-5); Hematocrit 40.4 % (40-54); Hemoglobin 13.8 g/dL (13.0-16.5); Lymphocyte # 1.48 X10^3/ul (0.83-4.51); Lymphocyte % 28.1 % (19-41); Mean Corp Hgb Conc 34.2 g/dL (32-36); Mean Corpuscular Hgb 31.7 pg (27.0-32.0); Mean Corpuscular Volume 92.7 fL (80-94); Mean Platelet Vol. 9.4 fl (6.2-12.0); Monocyte# 0.69 X10^3/uL; Monocyte% 13.1 % (0-10); NRBC Flagged by Analyzer 0 % (0-5); Neutrophil # 2.95 X10^3/uL (2.7-7.7); Neutrophil % 55.9 % (47-70); Platelet Count 186 K/mm3 (150-450); RBC Distribution Width CV 12.5 % (11.6-14.6); RBC Distribution Width SD 42.7 fl (35.1-43.9); Red Blood Count 4.36 M/mm3 (4.6-6.2); White Blood Count 5.3 K/mm3 (4.4-11.0)
[2022-02-10 17:41] LABS: ALB/GLOB Ratio 1.4 RATIO (0.9-2.4); AST(SGOT) 22 U/L (15-37); Alanine Aminotransfer ALT/SGPT 23 U/L (16-61); Albumin, Serum 3.9 g/dL (3.2-5.0); Alkaline Phosphatase 76 U/L (45-117); Anion Gap 5 (5-15); BUN 21 mg/dL (7-18); BUN/Creat Ratio 15.4 RATIO (10-20); Calcium,Total 9.3 mg/dL (8.5-10.1); Chloride 107 mmol/L (98-107); Creatinine, Serum 1.36 mg/dL (0.70-1.30); EST Glomerular Filtration Rate 56 mL/min (>60); Est Glom Filt Rate - Afr Amer 68 mL/min (>60); Globulin 2.8 g/dL (2.2-4.2); Glucose 110 mg/dL (74-106); Protein, Total 6.7 g/dL (6.4-8.2); Sodium Level 138 mmol/L (136-145)
== END | disposition home or self-care (01) ==
LOC: LAB 16:36
PROVIDERS: PCP Family Medicine; Visit Provider Internal Medicine Rheumatology
DX: M06.4 Inflammatory polyarthropathy (principal); R76.8 Other specified abnormal immunological findings in serum; K21.9 Gastro-esophageal reflux disease without esophagitis; Z90.5 Acquired absence of kidney
CPT/HCPCS: 36415; 80053; 85025

== ENCOUNTER → 2022-04-15 | Outpatient (CLI) | payer OTHER, SELFPAY ==
[2022-04-15 09:37] LABS: Absolute Neutrophil Count 3.2 X10^3/uL (2.0-7.7); Basophil# 0.04 X10^3/uL; Basophil% 0.8 % (0-1); Eosinophil# 0.07 X10^3/uL; Eosinophils% 1.4 % (0-5); Hematocrit 42.8 % (40-54); Hemoglobin 14.1 g/dL (13.0-16.5); Lymphocyte % 18.6 % (19-41); Mean Corp Hgb Conc 32.9 g/dL (32-36); Mean Corpuscular Hgb 31.1 pg (27.0-32.0); Mean Corpuscular Volume 94.5 fL (80-94); Monocyte# 0.61 X10^3/uL; Monocyte% 12.6 % (0-10); NRBC Flagged by Analyzer 0 % (0-5); Neutrophil % 66.2 % (47-70); Platelet Count 195 K/mm3 (150-450); RBC Distribution Width CV 12.5 % (11.6-14.6); RBC Distribution Width SD 43.7 fl (35.1-43.9); Red Blood Count 4.53 M/mm3 (4.6-6.2); White Blood Count 4.8 K/mm3 (4.4-11.0)
[2022-04-15 10:11] LABS: ALB/GLOB Ratio 1.3 RATIO (0.9-2.4); AST(SGOT) 21 U/L (15-37); Alanine Aminotransfer ALT/SGPT 24 U/L (16-61); Albumin, Serum 3.8 g/dL (3.2-5.0); Alkaline Phosphatase 78 U/L (45-117); Anion Gap 6 (5-15); BUN 17 mg/dL (7-18); BUN/Creat Ratio 13.3 RATIO (10-20); Calcium,Total 9.4 mg/dL (8.5-10.1); Chloride 106 mmol/L (98-107); Creatinine, Serum 1.28 mg/dL (0.70-1.30); EST Glomerular Filtration Rate 60 mL/min (>60); Est Glom Filt Rate - Afr Amer 73 mL/min (>60); Globulin 2.9 g/dL (2.2-4.2); Glucose 98 mg/dL (74-106); Potassium 4.3 mmol/L (3.5-5.1); Protein, Total 6.7 g/dL (6.4-8.2); Sodium Level 141 mmol/L (136-145)
== END | disposition home or self-care (01) ==
LOC: LAB 08:33
PROVIDERS: PCP Family Medicine; Visit Provider Internal Medicine Rheumatology
DX: M06.4 Inflammatory polyarthropathy (principal); R76.8 Other specified abnormal immunological findings in serum; K21.9 Gastro-esophageal reflux disease without esophagitis; Z90.5 Acquired absence of kidney; Z79.899 Other long term (current) drug therapy
CPT/HCPCS: 36415; 80053; 85025

== ENCOUNTER → 2022-07-14 | Outpatient (CLI) | payer OTHER, SELFPAY ==
[2022-07-14 17:26] LABS: Absolute Lymphocyte Count 1.51 X10^3/uL (0.83-4.51); Absolute Neutrophil Count 2.7 X10^3/uL (2.0-7.7); Basophil# 0.03 X10^3/uL; Basophil% 0.6 % (0-1); Eosinophil# 0.18 X10^3/uL; Eosinophils% 3.5 % (0-5); Hemoglobin 13.7 g/dL (13.0-16.5); Lymphocyte # 1.51 X10^3/ul (0.83-4.51); Mean Corp Hgb Conc 32.6 g/dL (32-36); Mean Platelet Vol. 8.6 fl (6.2-12.0); Monocyte# 0.78 X10^3/uL; NRBC Flagged by Analyzer 0 % (0-5); Neutrophil # 2.69 X10^3/uL (2.7-7.7); Neutrophil % 51.7 % (47-70); Platelet Count 195 K/mm3 (150-450); RBC Distribution Width CV 12.9 % (11.6-14.6); RBC Distribution Width SD 45.5 fl (35.1-43.9); Red Blood Count 4.42 M/mm3 (4.6-6.2); White Blood Count 5.2 K/mm3 (4.4-11.0)
[2022-07-14 18:18] LABS: ALB/GLOB Ratio 1.3 RATIO (0.9-2.4); AST(SGOT) 20 U/L (15-37); Alanine Aminotransfer ALT/SGPT 26 U/L (16-61); Albumin, Serum 3.9 g/dL (3.2-5.0); Alkaline Phosphatase 79 U/L (45-117); Anion Gap 4 (5-15); BUN 16 mg/dL (7-18); BUN/Creat Ratio 12.4 RATIO (10-20); Calcium,Total 9.4 mg/dL (8.5-10.1); Chloride 106 mmol/L (98-107); Creatinine, Serum 1.29 mg/dL (0.70-1.30); EST Glomerular Filtration Rate 60 mL/min (>60); Est Glom Filt Rate - Afr Amer 72 mL/min (>60); Globulin 2.9 g/dL (2.2-4.2); Glucose 72 mg/dL (74-106); Potassium 4.2 mmol/L (3.5-5.1); Protein, Total 6.8 g/dL (6.4-8.2); Sodium Level 138 mmol/L (136-145)
== END | disposition home or self-care (01) ==
LOC: LAB 17:11
PROVIDERS: PCP Family Medicine; Visit Provider Internal Medicine Rheumatology
DX: M06.4 Inflammatory polyarthropathy (principal); R76.8 Other specified abnormal immunological findings in serum; K21.9 Gastro-esophageal reflux disease without esophagitis; Z90.5 Acquired absence of kidney; Z79.899 Other long term (current) drug therapy
CPT/HCPCS: 36415; 80053; 85025

== ENCOUNTER → 2022-09-09 | Outpatient (CLI) | payer OTHER, SELFPAY ==
[2022-09-09 17:03] LABS: Absolute Lymphocyte Count 1.77 X10^3/uL (0.83-4.51); Absolute Neutrophil Count 3.4 X10^3/uL (2.0-7.7); Basophil# 0.05 X10^3/uL; Basophil% 0.8 % (0-1); Eosinophil# 0.16 X10^3/uL; Eosinophils% 2.6 % (0-5); Hemoglobin 14.1 g/dL (13.0-16.5); Lymphocyte # 1.77 X10^3/ul (0.83-4.51); Lymphocyte % 28.4 % (19-41); Mean Corp Hgb Conc 32.8 g/dL (32-36); Mean Corpuscular Hgb 31.1 pg (27.0-32.0); Mean Corpuscular Volume 94.7 fL (80-94); Mean Platelet Vol. 8.9 fl (6.2-12.0); Monocyte# 0.83 X10^3/uL; Monocyte% 13.3 % (0-10); NRBC Flagged by Analyzer 0 % (0-5); Neutrophil # 3.41 X10^3/uL (2.7-7.7); Neutrophil % 54.7 % (47-70); Platelet Count 202 K/mm3 (150-450); RBC Distribution Width CV 12.5 % (11.6-14.6); RBC Distribution Width SD 43.5 fl (35.1-43.9); Red Blood Count 4.54 M/mm3 (4.6-6.2); White Blood Count 6.2 K/mm3 (4.4-11.0)
[2022-09-09 17:50] LABS: ALB/GLOB Ratio 1.3 RATIO (0.9-2.4); AST(SGOT) 25 U/L (15-37); Alanine Aminotransfer ALT/SGPT 27 U/L (16-61); Albumin, Serum 3.9 g/dL (3.2-5.0); Alkaline Phosphatase 79 U/L (45-117); Anion Gap 5 (5-15); BUN 18 mg/dL (7-18); BUN/Creat Ratio 12.9 RATIO (10-20); Chloride 106 mmol/L (98-107); Creatinine, Serum 1.39 mg/dL (0.70-1.30); EST Glomerular Filtration Rate 55 mL/min (>60); Est Glom Filt Rate - Afr Amer 66 mL/min (>60); Globulin 3.1 g/dL (2.2-4.2); Glucose 75 mg/dL (74-106); Potassium 4.3 mmol/L (3.5-5.1); Sodium Level 140 mmol/L (136-145)
== END | disposition home or self-care (01) ==
PROVIDERS: PCP Family Medicine; Visit Provider Internal Medicine Rheumatology
DX: M06.4 Inflammatory polyarthropathy (principal); R76.8 Other specified abnormal immunological findings in serum; K21.9 Gastro-esophageal reflux disease without esophagitis; Z90.5 Acquired absence of kidney; Z79.899 Other long term (current) drug therapy
CPT/HCPCS: 36415; 80053; 85025

== ENCOUNTER → 2022-10-06 | Outpatient (CLI) | payer OTHER, SELFPAY ==
[2022-10-06 17:29] LABS: PSA,Total - Annual Screen 0.43 ng/mL (0.00-4.00)
== END | disposition home or self-care (01) ==
LOC: LAB 15:51
PROVIDERS: PCP Family Medicine
DX: N42.9 Disorder of prostate, unspecified (principal)
CPT/HCPCS: 36415; 84153; G0103

== ENCOUNTER → 2022-11-24 | Outpatient (CLI) | payer OTHER, SELFPAY ==
--- NOTE | 2022-11-23 16:40 | LES_PTH ---
PATIENT: GREGORIO DA SILVA LOC: [facility] U#:[id number] AGE/SX: 62/M ROOM: RE11/24/[address]: Dr. Aakash Stafford MD : 1960 BED: DIS: 11/24/2022 SPEC #: [id number] RECD: 11/24/22 09:53 STATUS: DANNA DARIUS #: [id number] CLARA: 11/23/22 16:[address]: Aakash Stafford DEPT: SURGICAL PATHOLOGY RECD BY: Ritika Chase Tissues: Skin of back, NOS Procedures: Surgery Specimen Level IV HEADER OPERATION: 3 mm punch biopsy PRE-OP DIAGNOSIS: Growing skin lesion TISSUE SUBMITTED: 3 mm upper back skin MICROSCOPIC DIAGNOSIS Upper back skin, punch biopsy: Superficial basal cell carcinoma. Solar elastosis. See comment. OLU:myriam 11/25/2022 COMMENT Case has been reviewed in consultation with Dr. Chen who concurs with the above diagnosis. IDC:AM MICROSCOPIC DESCRIPTION Slides are reviewed. GROSS DESCRIPTION Received in fixative is one container labeled with the patient's name and designated back biopsy. The specimen consists of a punch biopsy of winters-white skin measuring 0.3 cm in diameter and 0.6 cm in length. The specimen is totally submitted in one cassette. / SJ:rg 11/24/2022 TC:0 [facility]: [id number]
== END | disposition home or self-care (01) ==
LOC: LABSPEC 10:18
PROVIDERS: PCP Family Medicine; Referring Provider Family Medicine; Visit Provider Family Medicine
DX: C44.519 Basal cell carcinoma of skin of other part of trunk (principal)
CPT/HCPCS: 88305

== ENCOUNTER → 2022-12-08 | Outpatient (CLI) | payer OTHER, SELFPAY ==
[2022-12-08 11:24] LABS: Absolute Lymphocyte Count 1.27 X10^3/uL (0.83-4.51); Absolute Neutrophil Count 2.8 X10^3/uL (2.0-7.7); Basophil# 0.04 X10^3/uL; Basophil% 0.8 % (0-1); Hematocrit 41.8 % (40-54); Lymphocyte # 1.27 X10^3/ul (0.83-4.51); Lymphocyte % 25.6 % (19-41); Mean Corp Hgb Conc 33.5 g/dL (32-36); Mean Corpuscular Hgb 31.7 pg (27.0-32.0); Mean Corpuscular Volume 94.8 fL (80-94); Mean Platelet Vol. 8.9 fl (6.2-12.0); Monocyte# 0.68 X10^3/uL; Monocyte% 13.7 % (0-10); NRBC Flagged by Analyzer 0 % (0-5); Neutrophil # 2.76 X10^3/uL (2.7-7.7); Neutrophil % 55.7 % (47-70); Platelet Count 185 K/mm3 (150-450); RBC Distribution Width CV 12.4 % (11.6-14.6); RBC Distribution Width SD 43.7 fl (35.1-43.9); Red Blood Count 4.41 M/mm3 (4.6-6.2)
[2022-12-08 12:03] LABS: ALB/GLOB Ratio 1.2 RATIO (0.9-2.4); AST(SGOT) 19 U/L (15-37); Alanine Aminotransfer ALT/SGPT 23 U/L (16-61); Albumin, Serum 3.7 g/dL (3.2-5.0); Alkaline Phosphatase 87 U/L (45-117); Anion Gap 3 (5-15); BUN 17 mg/dL (7-18); Calcium,Total 9.1 mg/dL (8.5-10.1); Chloride 108 mmol/L (98-107); Creatinine, Serum 1.21 mg/dL (0.70-1.30); EST Glomerular Filtration Rate 64 mL/min (>60); Est Glom Filt Rate - Afr Amer 78 mL/min (>60); Globulin 3.1 g/dL (2.2-4.2); Glucose 113 mg/dL (74-106); Potassium 4.5 mmol/L (3.5-5.1); Protein, Total 6.8 g/dL (6.4-8.2); Sodium Level 139 mmol/L (136-145)
== END | disposition home or self-care (01) ==
LOC: LAB 11:12
PROVIDERS: PCP Family Medicine; Referring Provider Internal Medicine Rheumatology; Visit Provider Internal Medicine Rheumatology
DX: M06.4 Inflammatory polyarthropathy (principal); R76.8 Other specified abnormal immunological findings in serum; K21.9 Gastro-esophageal reflux disease without esophagitis; Z90.5 Acquired absence of kidney; Z79.899 Other long term (current) drug therapy
CPT/HCPCS: 36415; 80053; 85025

== ENCOUNTER → 2023-03-04 | Outpatient (CLI) | payer OTHER, SELFPAY ==
[2023-03-04 16:49] LABS: Absolute Lymphocyte Count 1.28 X10^3/uL (0.83-4.51); Absolute Neutrophil Count 3.3 X10^3/uL (2.0-7.7); Basophil# 0.04 X10^3/uL; Basophil% 0.7 % (0-1); Eosinophil# 0.18 X10^3/uL; Eosinophils% 3.3 % (0-5); Hemoglobin 13.1 g/dL (13.0-16.5); Lymphocyte # 1.28 X10^3/ul (0.83-4.51); Lymphocyte % 23.2 % (19-41); Mean Corp Hgb Conc 32.8 g/dL (32-36); Mean Corpuscular Hgb 31.1 pg (27.0-32.0); Mean Platelet Vol. 9.3 fl (6.2-12.0); Monocyte# 0.73 X10^3/uL; Monocyte% 13.2 % (0-10); NRBC Flagged by Analyzer 0 % (0-5); Neutrophil # 3.28 X10^3/uL (2.7-7.7); Neutrophil % 59.4 % (47-70); Platelet Count 205 K/mm3 (150-450); RBC Distribution Width CV 12.7 % (11.6-14.6); RBC Distribution Width SD 44.2 fl (35.1-43.9); Red Blood Count 4.21 M/mm3 (4.6-6.2); White Blood Count 5.5 K/mm3 (4.4-11.0)
[2023-03-04 17:19] LABS: ALB/GLOB Ratio 1.2 RATIO (0.9-2.4); AST(SGOT) 24 U/L (15-37); Alanine Aminotransfer ALT/SGPT 25 U/L (16-61); Albumin, Serum 3.6 g/dL (3.2-5.0); Alkaline Phosphatase 86 U/L (45-117); Anion Gap 8 (5-15); BUN 18 mg/dL (7-18); BUN/Creat Ratio 12.9 RATIO (10-20); Calcium,Total 8.8 mg/dL (8.5-10.1); Chloride 107 mmol/L (98-107); Creatinine, Serum 1.39 mg/dL (0.70-1.30); EST Glomerular Filtration Rate 55 mL/min (>60); Est Glom Filt Rate - Afr Amer 66 mL/min (>60); Globulin 2.9 g/dL (2.2-4.2); Glucose 101 mg/dL (74-106); Potassium 3.8 mmol/L (3.5-5.1); Protein, Total 6.5 g/dL (6.4-8.2); Sodium Level 140 mmol/L (136-145)
== END | disposition home or self-care (01) ==
LOC: LAB 15:51
PROVIDERS: PCP Family Medicine; Referring Provider Internal Medicine Rheumatology; Visit Provider Internal Medicine Rheumatology
DX: M06.4 Inflammatory polyarthropathy (principal); Z79.899 Other long term (current) drug therapy
CPT/HCPCS: 36415; 80053; 85025

== ENCOUNTER → 2023-06-01 | Outpatient (CLI) | payer OTHER, SELFPAY ==
[2023-06-01 17:53] LABS: Absolute Lymphocyte Count 1.55 X10^3/uL (0.83-4.51); Absolute Neutrophil Count 3.6 X10^3/uL (2.0-7.7); Basophil# 0.04 X10^3/uL; Basophil% 0.6 % (0-1); Eosinophil# 0.11 X10^3/uL; Eosinophils% 1.8 % (0-5); Hematocrit 41.5 % (40-54); Hemoglobin 13.7 g/dL (13.0-16.5); Lymphocyte # 1.55 X10^3/ul (0.83-4.51); Lymphocyte % 24.7 % (19-41); Mean Corpuscular Hgb 31.4 pg (27.0-32.0); Mean Corpuscular Volume 95.2 fL (80-94); Mean Platelet Vol. 9.4 fl (6.2-12.0); Monocyte# 0.93 X10^3/uL; Monocyte% 14.8 % (0-10); NRBC Flagged by Analyzer 0 % (0-5); Neutrophil # 3.62 X10^3/uL (2.7-7.7); Neutrophil % 57.8 % (47-70); Platelet Count 223 K/mm3 (150-450); RBC Distribution Width CV 12.8 % (11.6-14.6); Red Blood Count 4.36 M/mm3 (4.6-6.2); White Blood Count 6.3 K/mm3 (4.4-11.0)
[2023-06-01 18:23] LABS: ALB/GLOB Ratio 1.2 RATIO (0.9-2.4); AST(SGOT) 18 U/L (15-37); Alanine Aminotransfer ALT/SGPT 25 U/L (16-61); Albumin, Serum 3.6 g/dL (3.2-5.0); Alkaline Phosphatase 80 U/L (45-117); Anion Gap 5 (5-15); BUN 17 mg/dL (7-18); BUN/Creat Ratio 13.6 RATIO (10-20); Calcium,Total 9.1 mg/dL (8.5-10.1); Chloride 109 mmol/L (98-107); Creatinine, Serum 1.25 mg/dL (0.70-1.30); EST Glomerular Filtration Rate 62 mL/min (>60); Est Glom Filt Rate - Afr Amer 75 mL/min (>60); Globulin 3.1 g/dL (2.2-4.2); Glucose 89 mg/dL (74-106); Potassium 4.1 mmol/L (3.5-5.1); Protein, Total 6.7 g/dL (6.4-8.2); Sodium Level 140 mmol/L (136-145)
[2023-06-03 17:07] LABS: QNTFERON TB Mitogen Value > 10.00 IU/mL (.); QNTFERON TB Nil Value 0.04 IU/mL (.); QNTFERON TB1+ Ag Value 0.05 IU/mL (.); QNTFERON TB2+ Ag Value 0.03 IU/mL (.); QNTIFERON TB Positive Criteria Negative (Negative)
== END | disposition home or self-care (01) ==
LOC: LAB 16:40
PROVIDERS: PCP Family Medicine; Visit Provider Internal Medicine Rheumatology
DX: M06.4 Inflammatory polyarthropathy (principal); R76.8 Other specified abnormal immunological findings in serum; Z90.5 Acquired absence of kidney; Z79.899 Other long term (current) drug therapy
CPT/HCPCS: 36415; 80053; 85025; 86480

== ENCOUNTER → 2023-07-23 | Outpatient (CLI) | payer OTHER, SELFPAY ==
--- NOTE | 2023-07-23 16:46 | CT_ITS ---
STUDY: CT Chest W/ Contrast Injection 07/25/2023 4:08 PM REASON FOR EXAM: Male, 63 years old. annual evaluation of thoracic aneurysm Individualized dose optimization techniques were used for this CT. TECHNIQUE: Transaxial imaging was performed with 100 cc of Isovue 300 contrast material. COMPARISON: 10/31/2020 FINDINGS: There are degenerative changes of the shoulders. There is no pneumothorax. Stable 4 mm right middle lobe pleural nodule. There are calcifications of the coronary arteries. Normal mediastinum. Normal hilar regions. Normal pulmonary arteries. There is atherosclerotic calcification of the aortic arch with tortuosity and elongation of the aortic arch and descending thoracic aorta. There is aneurysmal dilatation of the ascending aorta. The transverse diameter of the ascending aorta measures (in mm): 45. There are multi-level degenerative changes of the thoracic spine. There are no acute findings of the upper abdomen. CT/Chest WITH Contrast IMPRESSION: Stable ascending thoracic aortic aneurysm. There are calcifications of the coronary arteries. Electronically Signed: Joseph Sanabria MD at 16:11 EST Reading Location ID and State: [facility] / [place] , Service support ,
[2023-07-23 17:15] LABS: CREATININE FINGERSTICK < 1.0 mg/dL (0.70-1.30); EGFR FINGERSTICK > 60.0000 mL/min (>60)
== END | disposition home or self-care (01) ==
PROVIDERS: PCP Family Medicine; Referring Provider Family Medicine; Visit Provider Family Medicine
DX: I71.20 Thoracic aortic aneurysm, without rupture, unspecified (principal)
CPT/HCPCS: 71260; Q9967

== ENCOUNTER → 2023-08-30 | Outpatient (CLI) | payer OTHER, SELFPAY ==
--- OUTSIDE RECORDS SUMMARY | 2023-08-30 16:47 | XMS RPT_ITS | CCD ---
Author Name Unknown Address [address] [place] [address] Organization [facility] Care Team Providers Care Hide Dropper Name Role Phone CHRISTIANA APPIAH Attending Unavailable MONY ROMERO Primary Care Unavailable MONY ROMERO MD Primary Care Physician RIC FALLON MD Attending Unavailable MONY ROMERO MD Primary Care Unavailable Medications Current Medications Medication Drug Class(es) Dates Sig (Normalized) Sig (Original) omeprazole 10 mg delayed release oral capsule (1 source) Proton Pump Inhibitor Start: 08-15-2011 Prilosec 10 mg oral delayed release capsule Dose : 10 mg = 1 cap(s), Oral, qDayAC, 0 Refill(s) Start Date: 08/15/11 Status: Ordered ondansetron 4 mg oral tablet (1 source) Serotonin-3 Receptor Antagonist Start: 08-15-2011 Zofran 4 mg oral tablet Dose : 4 mg = 1 tab(s), PO, q6h, PRN as needed for nausea/vomiting, 0 Refill(s) Start Date: 08/15/11 Status: Ordered Problems Problem Classification Problem Date Documented Da te Episodic/Chronic Other male genital disorders (2 sources) Disorder of prostate, unspecified; Translations: [Disorder of prostate, unspecified] Onset: 05-23-2022 Episodic Results Test Name Value Interpretation Reference Range Facil ity Vital Signs Date Time Vital Sign Value Performing Clinician Faci lity 08-14-2023 16:35-0500 Diastolic Blood Pressure Non-Invasive 78 mm[Hg] RIC FALLON MD [facility] 08-14-2023 16:35-0500 Heart rate 82 /min RIC FALLON MD [facility] 08-14-2023 16:35-0500 Respiratory rate 16 /min RIC FALLON MD [facility] 08-14-2023 16:35-0500 Systolic Blood Pressure Non-Invasive 133 mm[Hg] RIC FALLON MD [facility] 08-14-2023 15:29-0500 Body temperature 97.7 [degF] RIC FALLON MD [facility] 08-14-2023 15:29-0500 Diastolic Blood Pressure Non-Invasive 90 mm[Hg] RIC FALLON MD [facility] 08-14-2023 15:29-0500 Heart rate 92 /min RIC FALLON MD [facility] 08-14-2023 15:29-0500 Respiratory rate 16 /min RIC FALLON MD [facility] 08-14-2023 15:29-0500 Systolic Blood Pressure Non-Invasive 136 mm[Hg] RIC FALLON MD [facility] Encounters Encounter Date Encounter Type Care Provider Facility Start: 08-14-2023 End: 08-14-2023 Emergency department patient visit RIC FALLON MD Facility:B Start: 08-14-2023 End: 08-14-2023 Emergency department patient visit RIC FALLON MD [facility] Start: 10-13-2022 End: 10-13-2022 ambulatory [facility] Payers Date Payer Category Payer Unknown [id number] 2022 Unknown [id number] 1960 Unknown [id number] Social History Date Type Detail Facility Tobacco smoking status [facility] Functional Status Date Assessment Result Facility 08-14-2023 Functional Status [facility] 08-14-2023 Functional Status Ambulation in [facility] Mental Status Date Assessment Result Facility 08-14-2023 Mental Status Orientation Oriented x [facility] Discharge instructions 08-14-2023 Note Date & Type Note Facility 08-14-2023 Hospital Discharg e instructions Patient Education 08/14/2023 16:26:12 Laceration, Extremity: Suture, Staple, or Tape Extremity Laceration: Stitches, Willam, or Tape A laceration is a cut through the skin. If it is deep, it may require stitches or willam to close so it can heal. Minor cuts may be treated with surgical tape closures, or skin glue. X-rays may be done if something may have entered the skin through the cut. You may also need a tetanus shot if you are not up to date on this vaccine. Home care Follow the healthcare provider s instructions on how to care for the cut. Wash your hands with soap and warm water before and after caring for your wound. This is to help prevent infection. Keep the wound clean and dry. If a bandage was applied and it becomes wet or dirty, replace it. Otherwise, leave it in place for the first 24 hours, then change it once a day or as directed. If stitches or willam were used, clean the wound daily: oAfter removing the bandage, wash the area with soap and water. Use a wet cotton swab to loosen and remove any blood or crust that forms. oAfter cleaning, keep the wound clean and dry. Talk with your healthcare provider before putting any antibiotic ointment on the wound. Reapply the bandage. You may remove the bandage to shower as usual after the first 24 hours, but don't soak the area in water (no swimming) until the stitches or willam are removed. If surgical tape closures were used, keep the area clean and dry. If it becomes wet, blot it dry with a towel. Let the surgical tape fall off on its own. The healthcare provider may prescribe an antibiotic cream or ointment to prevent infection. He or she may also prescribe an antibiotic pill. Don't stop taking this medicine until you have finished it all or the provider tells you to stop. The provider may also prescribe medicine for pain. Follow the instructions for taking these medicines. Don't do activities that may reopen your wound. Follow-up care Follow up with your healthcare provider, or as advised. Most skin wounds heal within 10 days. But an infection may sometimes occur even with proper treatment. Check the wound daily for the signs of infection listed below. Stitches and willam should be removed within 7 to14 days. If surgical tape closures were used, you may remove them after 10 days if they have not fallen off by then. When to seek medical advice Call your healthcare provider right away if any of these occur: Wound bleeding not controlled by direct pressure Signs of infection, including increasing pain in the wound, increasing wound redness or swelling, or pus or bad odor coming from the wound Fever of 100.4 F (38 C) or higher, or as directed by your healthcare provider Stitches or willam come apart or fall out or surgical tape falls off before 7 days Wound edges reopen Wound changes colors Numbness occurs around the wound Decreased movement around the injured area [id number] [employer]. [address] [place] [address]. All rights reserved. This information is not intended as a substitute for professional medical care. Always follow your healthcare professional's instructions. Follow Up Care 08/14/2023 15:23:52 With:MONY ROMERO MD Address: [facility] [address] [place] [address]- When:2-[address] [facility] Clinical Note 08-14-2023 Note Date & Type Note Facility 08-14-2023 Note Discharge Instructions Thank you for allowing [facility] to assist you with your healthcare needs. The following is important discharge information regarding your hospital visit. Diagnosis from Today's Visit Laceration of finger What to Do Next Instructions from Your Care Team No qualifying data available. Post Acute Orders No qualifying data available. You Need to Schedule the Following Appointments Follow Up with MONY ROMERO MD When Within 2-4 days Where: [facility] [address] [place] [address]- Allergies NKA Medications Please ask your primary doctor or pharmacist before taking any other medication not listed, including over the counter drugs, herbal medications, vitamins and or supplements as they may interact with your home medications. What How Much When Instructions Last Dose Unchanged omeprazole (Prilosec 10 mg oral delayed release capsule) 1 cap by mouth Once a day before a meal Unchanged ondansetron (Zofran 4 mg oral tablet) 1 tab(s) by mouth Every 6 hours as needed for as needed for nausea/vomiting Please take this list to your next doctor s visit. Bring all medications you take, including over the counter medications, herbals and other supplements with you to your doctor s visit. Patients and families are reminded to discard old lists and to update any records with all medication providers or retail pharmacies. Education Materials Extremity Laceration: Stitches, [place], or Tape A laceration is a cut through the skin. If it is deep, it may require stitches or willam to close so it can heal. Minor cuts may be treated with surgical tape closures, or skin glue. X-rays may be done if something may have entered the skin through the cut. You may also need a tetanus shot if you are not up to date on this vaccine. Home care Follow the healthcare provider s instructions on how to care for the cut. Wash your hands with soap and warm water before and after caring for your wound. This is to help prevent infection. Keep the wound clean and dry. If a bandage was applied and it becomes wet or dirty, replace it. Otherwise, leave it in place for the first 24 hours, then change it once a day or as directed. If stitches or willam were used, clean the wound daily: oAfter removing the bandage, wash the area with soap and water. Use a wet cotton swab to loosen and remove any blood or crust that forms. oAfter cleaning, keep the wound clean and dry. Talk with your healthcare provider before putting any antibiotic ointment on the wound. Reapply the bandage. You may remove the bandage to shower as usual after the first 24 hours, but don't soak the area in water (no swimming) until the stitches or willam are removed. If surgical tape closures were used, keep the area clean and dry. If it becomes wet, blot it dry with a towel. Let the surgical tape fall off on its own. The healthcare provider may prescribe an antibiotic cream or ointment to prevent infection. He or she may also prescribe an antibiotic pill. Don't stop taking this medicine until you have finished it all or the provider tells you to stop. The provider may also prescribe medicine for pain. Follow the instructions for taking these medicines. Don't do activities that may reopen your wound. Follow-up care Follow up with your healthcare provider, or as advised. Most skin wounds heal within 10 days. But an infection may sometimes occur even with proper treatment. Check the wound daily for the signs of infection listed below. Stitches and willam should be removed within 7 to14 days. If surgical tape closures were used, you may remove them after 10 days if they have not fallen off by then. When to seek medical advice Call your healthcare provider right away if any of these occur: Wound bleeding not controlled by direct pressure Signs of infection, including increasing pain in the wound, increasing wound redness or swelling, or pus or bad odor coming from the wound Fever of 100.4 F (38 C) or higher, or as directed by your healthcare provider Stitches or willam come apart or fall out or surgical tape falls off before 7 days Wound edges reopen Wound changes colors Numbness occurs around the wound Decreased movement around the injured area [id number] [employer] [address] [place] [address]. All rights reserved. This information is not intended as a substitute for professional medical care. Always follow your healthcare professional's instructions. Additional Information VACCINATE! IT SAVES LIVES! Members of the community who have not yet received the COVID-19 vaccine and would like to receive it can visit one of [facility] vaccine clinics. There are many vaccine clinic locations within the [facility]. For locations and available times, please visit www.gettheshot.coronavirus.[place].gov/. It is important to note that some COVID mobile vaccine clinics are held outdoors and may be canceled in rainy or stormy conditions. To learn more about pediatric vaccinations (ages 5-11), we invite you to visit the [facility] webpage. https://www.[employer].org/pages/2 356-Pmspg-Qjcktghclyr-Frequently-Asked -Questions.html To learn more about the COVID-19 vaccine, we invite you to visit the CDC website for a list of frequently asked questions. https://www.cdc.gov/coronavirus/2019-n cov/vaccines/faq.html [facility] Patient Portal Access Instructions: Stay connected with your healthcare team and access your personal medical information anytime with the [facility] Patient Portal. If you would like a full copy of your medical records please contact the [facility] Medical Records Department Wednesday through Wednesday between 8a.m. and 4:30p.m. Please follow the directions below to access the portal: 1.Access the email account you provided upon registration to the hospital.2.Look for an invitation email from [facility].3.Open the email and access the invitation link: Accept Invitation to [facility].Fill in the required [place] to create your account. Sign into [email or web address] with your username and password that you created in the above steps to stay up to date. You can then view a summary of results, a summary of your visits, and the ability to download your summaries to your computer or send the information securely to a physician. Remember that your healthcare information is confidential, so carefully consider who you will allow to register on the [facility] Patient Portal for access to your information. You can also access the [facility] Patient Portal on the [employer] anat. Simply click on Health Records under Health Data and then click on the [employer] logo. HOW TO SAFELY DISPOSE OF PRESCRIPTION MEDICATIONS Please use one of the following methods to safely dispose of your unused medications. 1.Use a drug disposal kit: the drug disposal pouch allows you to safely discard your old and unused drugs. Ask your nurse to give you one when you are discharged.2.Visit a local take-back location: Many local pharmacies and police departments have programs that collect old and unwanted prescription drugs. Call your local pharmacy or go to http://[employer]/3U3Gx6g to find one close to you.3.Make use of household items: Use cat litter or old coffee grounds to dispose medications if other options are not available. Mix your drugs with these household products, seal them in an airtight container and throw it into the garbage. Call [facility]: [phone] to be sure your drugs can be disposed of in this way. Some medicines may require a different approach.4.Never flush your medications down the toilet. IF YOU HAVE BEEN PRESCRIBED AN OPIOIDS FOR PAIN If you have been prescribed an opioid (such as hydrocodone, oxycodone or morphine), it is critical to understand the possible side effects and risks of opioid pain medications. Even when taken as directed, opioids can have several side effects including: Tolerance, meaning you might need to take more of a medication for the same pain relief. Nausea, vomiting and/or constipation. Sleepiness, dizziness, dry mouth, confusion, depression or itching. Physical dependence, meaning you have withdrawal symptoms when a medication is stopped ? this can develop within a few days. KNOW YOUR RESPONSIBILITIES It is important to know exactly how much and how often to take the opioid pain medications you are prescribed. Never take opioids in higher amounts or more often than prescribed. Do not combine opioids with alcohol or other drugs that cause drowsiness, such as benzodiazepines, also known as benzos, including diazepam and alprazolam, muscle relaxants or sleep aids. Never sell or share prescription opioids. This is illegal. Store opioids in a secure place and out of reach of others (including children, family, friends and visitors). The last page(s) of this document has been signed and retained as a CHART COPY Signatures Patient Education Materials Laceration, Extremity: Suture, Staple, or Tape Medication Leaflets My discharge plan and instructions have been reviewed and explained to me and IREKHA HOWARD S understand my current condition and have read and understand these discharge instructions. I have received a written copy of the plan/instructions. If I have questions, I am aware that I should contact my doctor. 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 Clinical Note 08-14-2023 Note Date & Type Note Facility 08-14-2023 Note ORIGINAL EXAMINATION: THREE XRAY VIEWS OF THE RIGHT FINGERS08/14/2023 4:13 pm XR right hand 5th digit three views COMPARISON: None HISTORY: ORDERING SYSTEM PROVIDED HISTORY: Reason for Exam: pain, trauma, pain, laceration FINDINGS: There is no visualized acute fracture or dislocation. No radio-opaque foreign body or soft tissue gas is seen. Mild degenerative changes. IMPRESSION: No acute fracture seen. Interpreted by: Indra Millan MD Preliminary Report By: Indra Millan MD Electronically signed By Indra Millan MD Dictated Date: 08/14/2023 4:20:40 PM Prelim Date: 08/14/2023 4:21:15 PM Sign Date: 08/14/2023 4:21:15 PM Ordering Provider: RIC FALLON [facility] Evaluation + Plan note Note Date & Type Note Facility Evaluation + Plan note No data available for this section [facility] Summary Purpose Family History No Family History Records Found No data available for this section No Family History Records Found Advance Directives No Advanced Directives Records FoundNo Advanced Directives Records Found Additional Source Comments (unrecognized sect ion and content) No Status Records FoundNo Status Records Found INFORMATION SOURCE (unrecogn ized section and content) DATE CREATED AUTHOR AUTHOR'S ORGANIZ ATION 08/20/2023 [facility] ([place]) Patient Care team informatio n (unrecognized section and content) Care Team Personnel Name: MONY ROMERO MD Member Role: Primary Care Physician Address: Address: [address] [place], [place] [address] Name: Cathy Leach RN Position: AO RN Member Role: ED RN Name: RIC FALLON MD Position: ED Physician Member Role: Attending Physician Address: Address: [address] [place], [place] [address], [place] [address] Care Team Related Persons Name: DELVIN DA SILVA Address: Home [address] [place] [address] FOR RECORDS PERTAINING TO PATIENTS WHO ARE OR HAVE BEEN ENROLLED IN A CHEMICAL DEPENDENCY/SUBSTANCEABUSE PROGRAM, SOME INFORMATION MAY BE OMITTED. This clinical summary was aggregated from multiple sources. Caution should be exercised in using it in the provision of clinical care. This summary normalizes information from multiple sources, and as a consequence, information in this document may materially change the coding, format and clinical context of patient data. In addition, data may be omitted in some cases. CLINICAL DECISIONS SHOULD BE BASED ON THE PRIMARY CLINICAL RECORDS. [facility]. provides no warranty or guarantee of the accuracy or completeness of information in this document.
[2023-08-30 16:59] LABS: Absolute Lymphocyte Count 1.55 X10^3/uL (0.83-4.51); Absolute Neutrophil Count 6.9 X10^3/uL (2.0-7.7); Basophil# 0.05 X10^3/uL; Basophil% 0.5 % (0-1); Eosinophil# 0.14 X10^3/uL; Eosinophils% 1.4 % (0-5); Hematocrit 41.3 % (40-54); Hemoglobin 13.6 g/dL (13.0-16.5); Lymphocyte # 1.55 X10^3/ul (0.83-4.51); Lymphocyte % 15.9 % (19-41); Mean Corp Hgb Conc 32.9 g/dL (32-36); Mean Corpuscular Volume 94.1 fL (80-94); Mean Platelet Vol. 8.8 fl (6.2-12.0); Monocyte# 1.05 X10^3/uL; Monocyte% 10.8 % (0-10); NRBC Flagged by Analyzer 0 % (0-5); Neutrophil # 6.89 X10^3/uL (2.7-7.7); Platelet Count 235 K/mm3 (150-450); RBC Distribution Width SD 44.9 fl (35.1-43.9); Red Blood Count 4.39 M/mm3 (4.6-6.2); White Blood Count 9.7 K/mm3 (4.4-11.0)
[2023-08-30 17:27] LABS: ALB/GLOB Ratio 1.3 RATIO (0.9-2.4); AST(SGOT) 22 U/L (15-37); Alanine Aminotransfer ALT/SGPT 22 U/L (16-61); Albumin, Serum 3.8 g/dL (3.2-5.0); Alkaline Phosphatase 79 U/L (45-117); Anion Gap 5 (5-15); BUN 19 mg/dL (7-18); BUN/Creat Ratio 14.8 RATIO (10-20); Calcium,Total 9.3 mg/dL (8.5-10.1); Chloride 106 mmol/L (98-107); Creatinine, Serum 1.28 mg/dL (0.70-1.30); EST Glomerular Filtration Rate 60 mL/min (>60); Est Glom Filt Rate - Afr Amer 72 mL/min (>60); Glucose 97 mg/dL (74-106); Potassium 4.4 mmol/L (3.5-5.1); Protein, Total 6.8 g/dL (6.4-8.2); Sodium Level 139 mmol/L (136-145)
== END | disposition home or self-care (01) ==
LOC: MTLAB 16:38 → LAB 16:40
PROVIDERS: PCP Family Medicine; Referring Provider Internal Medicine Rheumatology; Visit Provider Internal Medicine Rheumatology
DX: M06.4 Inflammatory polyarthropathy (principal); R76.8 Other specified abnormal immunological findings in serum; Z79.899 Other long term (current) drug therapy
CPT/HCPCS: 36415; 80053; 85025

== ENCOUNTER → 2023-11-30 | Outpatient (CLI) | payer OTHER, SELFPAY ==
[2023-11-30 09:00] LABS: Absolute Lymphocyte Count 1.14 X10^3/uL (0.83-4.51); Absolute Neutrophil Count 2.1 X10^3/uL (2.0-7.7); Basophil# 0.06 X10^3/uL; Basophil% 1.4 % (0-1); Eosinophil# 0.23 X10^3/uL; Eosinophils% 5.3 % (0-5); Hematocrit 37.3 % (40-54); Hemoglobin 11.9 g/dL (13.0-16.5); Lymphocyte # 1.14 X10^3/ul (0.83-4.51); Lymphocyte % 26.5 % (19-41); Mean Corp Hgb Conc 31.9 g/dL (32-36); Mean Corpuscular Hgb 30.3 pg (27.0-32.0); Mean Corpuscular Volume 94.9 fL (80-94); Mean Platelet Vol. 8.8 fl (6.2-12.0); Monocyte# 0.76 X10^3/uL; Monocyte% 17.6 % (0-10); NRBC Flagged by Analyzer 0 % (0-5); Neutrophil # 2.11 X10^3/uL (2.7-7.7); Platelet Count 254 K/mm3 (150-450); RBC Distribution Width CV 12.9 % (11.6-14.6); RBC Distribution Width SD 44.9 fl (35.1-43.9); Red Blood Count 3.93 M/mm3 (4.6-6.2); White Blood Count 4.3 K/mm3 (4.4-11.0)
[2023-11-30 09:32] LABS: ALB/GLOB Ratio 1.1 RATIO (0.9-2.4); AST(SGOT) 15 U/L (15-37); Alanine Aminotransfer ALT/SGPT 17 U/L (16-61); Albumin, Serum 3.4 g/dL (3.2-5.0); Alkaline Phosphatase 146 U/L (45-117); Anion Gap 5 (5-15); BUN 16 mg/dL (7-18); Chloride 107 mmol/L (98-107); Creatinine, Serum 1.23 mg/dL (0.70-1.30); EST Glomerular Filtration Rate 63 mL/min (>60); Est Glom Filt Rate - Afr Amer 76 mL/min (>60); Globulin 3.2 g/dL (2.2-4.2); Glucose 76 mg/dL (74-106); Potassium 4.3 mmol/L (3.5-5.1); Protein, Total 6.6 g/dL (6.4-8.2); Sodium Level 139 mmol/L (136-145)
== END | disposition home or self-care (01) ==
LOC: LAB 08:21
PROVIDERS: PCP Family Medicine; Referring Provider Internal Medicine Rheumatology; Visit Provider Internal Medicine Rheumatology
DX: M06.4 Inflammatory polyarthropathy (principal); Z79.899 Other long term (current) drug therapy
CPT/HCPCS: 36415; 80053; 85025

== ENCOUNTER → 2024-03-14 | Outpatient (CLI) | payer OTHER, SELFPAY ==
[2024-03-14 17:28] LABS: Absolute Lymphocyte Count 1.47 X10^3/uL (0.83-4.51); Absolute Neutrophil Count 2.7 X10^3/uL (2.0-7.7); Basophil# 0.04 X10^3/uL; Basophil% 0.8 % (0-1); Eosinophil# 0.15 X10^3/uL; Eosinophils% 2.8 % (0-5); Hematocrit 39.7 % (40-54); Hemoglobin 13.1 g/dL (13.0-16.5); Lymphocyte # 1.47 X10^3/ul (0.83-4.51); Lymphocyte % 27.7 % (19-41); Mean Corpuscular Volume 90.8 fL (80-94); Mean Platelet Vol. 9.2 fl (6.2-12.0); Monocyte# 0.89 X10^3/uL; Monocyte% 16.8 % (0-10); NRBC Flagged by Analyzer 0 % (0-5); Neutrophil # 2.74 X10^3/uL (2.7-7.7); Neutrophil % 51.7 % (47-70); Platelet Count 186 K/mm3 (150-450); RBC Distribution Width CV 13.3 % (11.6-14.6); RBC Distribution Width SD 44.9 fl (35.1-43.9); Red Blood Count 4.37 M/mm3 (4.6-6.2); White Blood Count 5.3 K/mm3 (4.4-11.0)
[2024-03-14 18:17] LABS: ALB/GLOB Ratio 1.4 RATIO (0.9-2.4); AST(SGOT) 29 U/L (15-37); Alanine Aminotransfer ALT/SGPT 30 U/L (16-61); Albumin, Serum 3.8 g/dL (3.2-5.0); Alkaline Phosphatase 84 U/L (45-117); Anion Gap 6 (5-15); BUN 19 mg/dL (7-18); BUN/Creat Ratio 14.3 RATIO (10-20); Calcium,Total 9.2 mg/dL (8.5-10.1); Chloride 106 mmol/L (98-107); Creatinine, Serum 1.33 mg/dL (0.70-1.30); EST Glomerular Filtration Rate 57 mL/min (>60); Est Glom Filt Rate - Afr Amer 69 mL/min (>60); Globulin 2.7 g/dL (2.2-4.2); Glucose 87 mg/dL (74-106); Potassium 3.9 mmol/L (3.5-5.1); Protein, Total 6.5 g/dL (6.4-8.2); Sodium Level 140 mmol/L (136-145)
== END | disposition home or self-care (01) ==
PROVIDERS: PCP Family Medicine; Referring Provider Internal Medicine Rheumatology; Visit Provider Internal Medicine Rheumatology
DX: M06.4 Inflammatory polyarthropathy (principal); Z79.899 Other long term (current) drug therapy
CPT/HCPCS: 36415; 80053; 85025

== ENCOUNTER 2024-05-04 07:18 | Day surgery (SDC) | payer OTHER, SELFPAY ==
[2024-05-04] VITALS (7 sets, daily range): BP systolic 114–133; BP diastolic 69–87; PULSE 57–72; RESP 16; TEMP 36.2–36.4; O2SAT 99–100; BMI 20.7
--- NOTE | 2024-05-04 07:38 | PCM.PRE.AN2 ---
ASA Classification* ASA Classification ASA Classification: 2 Assessment & Plan Anesthesia* Anesthesia Assessment Anesthesia Assessment: Discussed sedation and/or anesthesia options, risks, benefits, and alternatives with patient/parents/legal guardian/POA. Questions invited. The patient/parents/legal guardian/POA seems to understand and agrees to proceed with anesthesia plan. Reviewed the physical assessment, medical history, allergy history and patient home medications list prior to surgery/procedure/anesthetic and documented any changes. Performed airway and anesthesia risk assessments. Anesthesia Type Anesthesia Type: MAC (see written pre anesthesia record for full assessment) Anesthesia Focused Assessment* Airway Assessment Mouth opens: >3 cm Mallampati Score: II Focused Labs Anesthesia Preop lab: CBC WBC 5.3 K/mm3 (4.4-11.0) 03/14/24 16:39 RBC 4.37 M/mm3 (4.6-6.2) L 03/14/24 16:39 Hgb 13.1 g/dL (13.0-16.5) 03/14/24 16:39 Hct 39.7 % (40-54) L 03/14/24 16:39 Plt Count 186 K/mm3 (150-450) 03/14/24 16:39 CHEMISTRY Potassium 3.9 mmol/L (3.5-5.1) 03/14/24 16:39 Sodium 140 mmol/L (136-145) 03/14/24 16:39 BUN 19 mg/dL (7-18) H 03/14/24 16:39 Creatinine 1.33 mg/dL (0.70-1.30) H 03/14/24 16:39 Glucose 87 mg/dL (74-106) 03/14/24 16:39 TSH 2.63 uIU/mL (0.358-3.74) 07/20/18 16:19 COAG PT 13.3 SECONDS (11.7-14.9) 07/01/18 14:53 Pre-Assessment Diagnosis/Proposed Procedure Planned Operative Procedure(s): COLONOSCOPY Anesthesia History Anesthesia History - quill collector: Anesthesia History - quill collector Hx Hospitalization Yes: HIP REPLACEMENT, 05/02/24 13:38 [facility] Any Problems With Anesthesia No 05/02/24 13:38 Cholinesterase deficiency No 05/02/24 13:38 You/Your Family Experience No 05/02/24 13:38 fever (hyperthermia) with Relationship Recent Exposure to Contagious Disease Does patient have nerve No 05/02/24 13:38 stimulator Patient instructed to have device shut off --Does patient have Pacemaker or ICD? When Was Last Pacemaker Check QUESTION #4 FULL TEXT: You/Your Family Experience fever (hyperthermia) with Anesthesia Last Oral Intake Last Oral intake: Last Oral Intake NPO since Meds taken in AM with sips of water? Meds patient instructed to take am of surgery PONV PONV - quill collector: PONV - quill collector Female No 05/02/24 13:38 HX of Motion Sickness No 05/02/24 13:38 HX of N/V After Surgery No 05/02/24 13:38 Non-Smoker Yes 05/02/24 13:38 Duration of Surgery greater No 05/02/24 13:38 than 60 minutes Number of Risk Factors 1 05/02/24 13:38 PONV Score Low Risk 05/02/24 13:38 Height & Weight Height & Weight: Anesthesia: Height & Weight Height 5 ft 11 in 04/24/24 08:29 Respiratory Assessment Respiratory Assessment - quill collector: Respiratory Tract Infection Hx - quill collector Hx Respiratory Tract Infection Yes: RUNNY NOSE, NO FEVERS 05/02/24 13:38 STOP Sleep Apnea STOP Sleep Apnea - quill collector: STOP Sleep Apnea - quill collector Hx Hypertension No 05/02/24 13:38 Hx Sleep Apnea No 05/02/24 13:38 CPAP BIPAP Do you snore loudly (louder No 05/02/24 13:38 than talking or can be heard Do you often feel tired/ No 05/02/24 13:38 fatigued/ sleepy during daytime? Has anyone observed you stop No 05/02/24 13:38 breathing during sleep? STOP Results Negative 05/02/24 13:38 QUESTION #5 FULL TEXT : Do you snore loudly (louder than talking or can be heard through closed doors)? 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 Specify any problems Hx of Preganancy in last 3 N/A 05/02/24 13:38 Months Nurse Filling Out Transfusion [email or web address] 05/02/24 13:38 & Questions: Date: 05/02/24 05/02/24 13:38 Time: 13:41 05/02/24 13:38 Patient unable to answer at this time (ie. confused, unrespo /Reproduction History /Reproductive History - quill collector: /Reproductive Hx- quill collector Hx Now Gestational Age (in weeks): EDC: Hx Hx Para Hx Section SAB Active Medications Active Medications: Current Medications Generic Name Dose Route Start Last Admin Trade Name Freq PRN Reason Stop Dose Admin Lactated Ringer's 1,000 mls @ 15 mls/hr 05/04/24 07:30 IV .Q48H CHETAN PFSH Medical History Wears glasses Wears hearing aid Easy bruising GERD (gastroesophageal reflux disease) Positive colorectal cancer screening using Cologuard test CKD (chronic kidney disease) Rheumatoid arthritis Basal cell carcinoma Home Medications ?Medication ?Instructions ?Recorded ?Last Taken ?Type coenzyme Q10 50 mg capsule 100 mg PO DAILY 02/03/16 Unknown History psyllium husk (aspartame) 3.4 gram 1 packet PO DAILY 02/03/16 04/29/24 History oral powder packet (Metamucil Fiber Singles) hydroxychloroquine 200 mg tablet 200 mg PO BID 04/24/24 Unknown History leflunomide 20 mg tablet 20 mg PO QDAY 04/24/24 Unknown History prednisone 10 mg tablet 10 mg PO QDAY PRN HIP 04/24/24 Unknown History Allergy/AdvReac Type Severity Reaction Status Date / Time ipratropium Allergy Mild Other Verified 05/02/24 13:36 Family History Mother Heart disease Hypertension Father CVA (cerebral vascular accident) Surgical History S/P Mohs surgery for basal cell carcinoma S/P cystoscopy S/P pneumonectomy S/P total left hip arthroplasty History of right nephrectomy Social History Smoking Status: Former smoker alcohol intake: never Review of Systems (Anesthesia) ROS Narrative System reviewed and no additional complaints, except as documented.
[2024-05-04] MEDS: Lactated Ringers 1,000 ML 15 ML IV (08:00)
--- NOTE | 2024-05-04 08:46 | PCM.HP.BLA ---
History and Physical Date of Admission: 05/04/24 Intake Vital Signs 04/24/2408:29 Height 5 ft 11 in Weight: 158 lb BMI 22.0 BP 168/90 H Blood Pressure Location Rt brachial Position Sitting Respiration 18 Intake Visit Reasons: Positive Cologuard Chief Complaint: positive cologuard Solution Manager Required: No Is patient in pain?: No Allergies ipratropium Allergy (Mild, Verified 04/24/24 08:30) Other Medications ?Medication ?Instructions ?Recorded ?Confirmed ?Type coenzyme Q10 50 mg capsule 100 mg PO DAILY 02/03/16 04/24/24 History multivitamin (Daily Multiple 1 ea PO DAILY 02/03/16 04/24/24 History tablet) psyllium husk (aspartame) 3.4 gram 1 packet PO DAILY 02/03/16 04/24/24 History oral powder packet (Metamucil Fiber Singles) hydroxychloroquine 200 mg tablet 200 mg PO BID 04/24/24 04/24/24 History leflunomide 20 mg tablet 20 mg PO QDAY 04/24/24 04/24/24 History prednisone 10 mg tablet 10 mg PO QDAY PRN 04/24/24 04/24/24 History Have you fallen in the past year?: No PFSH Medical History GERD (gastroesophageal reflux disease) Positive colorectal cancer screening using Cologuard test CKD (chronic kidney disease) Rheumatoid arthritis Basal cell carcinoma Surgical History S/P Mohs surgery for basal cell carcinoma S/P cystoscopy S/P pneumonectomy S/P total left hip arthroplasty History of right nephrectomy Family History Mother Heart disease HypertensionFather CVA (cerebral vascular accident) Social History Smoking Status: Never smoker alcohol intake: never HPI HPI HPI: Patient is a 64-year-old male here for positive Cologuard. Patient had a last colonoscopy about 8 years ago and was normal. He had a Cologuard which was positive. He denies abdominal pain or blood in the stool. ROS General General: No weight change, appetite, fatigue, colon cancer, breast cancer or weakness HEENT HEENT: No difficulty swallowing, eye injury, eye surgery, swollen glands or hoarseness Endo Endocrine: No thyroid disease, diabetes mellitus, thyroid cancer, Hair loss, heat intolerance or cold intolerance Skin Skin: No rash or changing moles Breast Breast: No left breast lump, right breast lump, nipple discharge, breast pain, abnormal mammogram, abnormal US or breast enlargement Musc Musculoskeletal: Yes arthritis and rheumatoid arthritis; No back problems, gout or joint pain Cardio Cardiovascular: No murmur, pacemaker, heart disease, atrial fibrillation, high blood pressure, heart attack, heart stent, palpitations, shortness of breat with exertion or chest pain Psych Psychiatric: No depression, anxiety or hearing voices Resp Respiratory: No shortness of breath, No sleep apnea, No cough, No COPD, No asthma, No emphysema and No wheezing Gastro Gastrointestinal: No abdominal pain, No nausea or vomiting, No diarrhea, No constipation, No blood in stool, No acid reflux, No hemorrhoids, No ulcers, No gallbladder problem and No black,tarry stools Donald Hematologic: No blood thinners, No blood disorders, No bleeding, No anemia and No blood clots Neuro Neurologic: No system reviewed and no additional complaints, except as documented, No as per HPI, No abnormal gait, No abnormal hearing, No abnormal movements, No abnormal speech, No behavioral changes, No burning sensations, No confusion, No convulsions, No disequilibrium, No dizziness, No localized weakness, No frequent falls, No headache(s), No lack of coordination, No loss of vision, No memory loss, No numbness, No other visual disturbances, No radicular pain, No restless legs, No sensory deficit, No syncope, No tingling, No tremor(s), No weakness and No other Exam Const General: cooperative Orientation: alert and oriented x3 HENMT Head: normal to inspection Neck Neck: normal visual inspection and full ROM Chest Chest palpation & inspection: normal inspection of the chest Resp Effort & Inspection: normal respiratory effort Auscultation: clear to auscultation bilaterally Cardio Rate: regular rate Rhythm: regular rhythm GI Inspection: non-distended Palpation: soft and nontender Skin General: no rashes or lesions noted Neuro General: patient alert and patient oriented x3 Extrem General: full ROM Psych Appearance: grossly normal Mental Status: mental status grossly normal Assessment and Plan Assessment and Plan (1) Positive colorectal cancer screening using Cologuard test: Status: Acute Plan: I explained endoscopy in detail to the patient. I explained the risks including but not limited to stroke or heart attack with anesthesia, perforation of the GI tract, bleeding, infection. I explained that any of these could necessitate further emergency surgery. The patient understands and all questions were answered sufficiently. The patient wishes to proceed with procedure. Joseluis Hummel MD Pager: [facility] [address] [place] [address] [address] [place] [address] Office: I have examined the patient and the H&P has been reviewed. There are no clinical changes since date of exam.
--- NOTE | 2024-05-04 09:14 | OP.COLON_ITS ---
Patient Name: Gareth Noriega Procedure Date: 05/04/2024 8:51 AM Date of : 1960 Age: 64 Procedure: Colonoscopy Indications: Positive Cologuard test Providers: Joseluis Hummel MD Referring MD: Aakash Stafford Medicines: Propofol per Anesthesia Patient Profile: This is a 64 year old male. Refer to note in patient chart for documentation of history and physical. Last Colonoscopy: several years ago. Complications: No immediate complications. Procedure: Pre-Anesthesia Assessment: - Prior to the procedure, a History and Physical was performed, and patient medications and allergies were reviewed. The patient's tolerance of previous anesthesia was also reviewed. The risks and benefits of the procedure and the sedation options and risks were discussed with the patient. All questions were answered, and informed consent was obtained. Prior Anticoagulants: The patient has taken no anticoagulant or antiplatelet agents. ASA Grade Assessment: II - A patient with mild systemic disease. After reviewing the risks and benefits, the patient was deemed in satisfactory condition to undergo the procedure. After I obtained informed consent, the scope was passed under direct vision. Throughout the procedure, the patient's blood pressure, pulse, and oxygen saturations were monitored continuously. The Colonoscope was introduced through the anus and advanced to the cecum, identified by appendiceal orifice and ileocecal valve. The colonoscopy was performed without difficulty. The patient tolerated the procedure well. The quality of the bowel preparation was good. The ileocecal valve, appendiceal orifice, and rectum were photographed. Scope In: 9:00:38 AM Scope Withdrawal Time 0 hours 4 minutes 15 seconds Scope Out: 9:11:53 AM Total Procedure Duration Time 0 hours 11 minutes 15 seconds Findings: The entire examined colon appeared normal on direct and retroflexion views. Impression: - The entire examined colon is normal on direct and retroflexion views. - No specimens collected. Recommendation: - Discharge patient to home. - Resume previous diet. - Continue present medications. - Repeat colonoscopy in 10 years for screening purposes. Procedure Code(s): --- Professional --- 30169, Colonoscopy, flexible; diagnostic, including collection of specimen(s) by brushing or washing, when performed (separate procedure) Diagnosis Code(s): --- Professional --- R19.5, Other fecal abnormalities CPT copyright 2021 [employer]. All rights reserved. The codes documented in this report are preliminary and upon caramel candy maker review may be revised to meet current compliance requirements. Joseluis Hummel MD 05/04/2024 9:13:49 AM This report has been signed electronically. Number of Addenda: 0 Note Initiated On: 05/04/2024 8:51 AM
--- NOTE | 2024-05-04 09:14 | OP.CCLET_ITS ---
05/04/2024 Aakash Stafford [address] [place] [address] Re : Colonoscopy procedure for Gareth Noriega Dear Dr. Stafford This procedure was performed on April. My impressions and recommendations are as follows: Impressions : - The entire examined colon is normal on direct and retroflexion views. - No specimens collected. Recommendations : - Discharge patient to home. - Resume previous diet. - Continue present medications. - Repeat colonoscopy in 10 years for screening purposes. My findings are described in the full procedure note, which is enclosed. If I can be of further assistance, please feel free to contact me at Doctor phone number(s): , Work: . Sincerely, Joseluis Hummel MD 05/04/2024 9:13:49 AM This report has been signed electronically.
--- NOTE | 2024-05-04 09:18 | PCM.POST.ANE ---
Anesthesia: Postop Eval I Current Vital Signs Temperature: 97.6 F Pulse Rate: 72 Blood Pressure: 114/73 Respiratory Rate: 16 Pulse Ox: 99 Oxygen Delivery Method: Room Air Assessment Airway patent: Yes Spontaneous unlabored respirations: Yes Mental status: Asleep nausea: No Vomiting: No Anesthesia Complication: No Fluid Hydration Crystalloid volume administer (ml): 500 Total IV fluid infused: 500 Progress Note Anesthesia document: Postop Eval 1 completed: Yes
--- NOTE | 2024-05-04 09:29 | PCM.POSTANE2 ---
Anesthesia Postop Eval I Sum Postop Eval Completion status Anesthesia document: Postop Eval 1 completed: Yes Anesthesia Postop Eval I Summary Anesthesia Postop Eval I Summary: Anesthesia Postop Eval I: Assessment Summary Airway patent Yes 05/04/24 09:19 [email or web address] Spontaneous unlabored Yes 05/04/24 09:19 [email or web address] respirations Mental status Asleep 05/04/24 09:19 [email or web address] nausea No 05/04/24 09:19 [email or web address] Vomiting No 05/04/24 09:19 [email or web address] Anesthesia Postop Eval I: Fluid Summary Crystalloid volume administer 500 05/04/24 09:19 [email or web address] (ml) Colloids volume administered ( ml) Blood Product volume administered (ml) Total IV fluid infused 500 05/04/24 09:19 [email or web address] Anesthesia Postop Eval I: Summary Notes Anesthesia Complication No 05/04/24 09:19 [email or web address] Anesthesia Complication Comment: Post-operative progress note Anesthesia: Postop Eval II Evaluation Mental status: Awake Pain Level: 0 nausea: No Vomiting: No
== END 2024-05-04 09:56 | disposition home or self-care (01) ==
LOC: EN 07:20 → AC 07:22
PROVIDERS: PCP Family Medicine; Referring Provider Family Medicine; Visit Provider Surgery
PROC: 0DJD8ZZ Inspection of Lower Intestinal Tract, Via Natural or Artificial Opening Endoscopic (ICD-10-PCS; CPT 45378; principal; 2024-05-04 08:25)
DX: R19.5 Other fecal abnormalities (principal); N18.9 Chronic kidney disease, unspecified; Z87.891 Personal history of nicotine dependence
CPT/HCPCS: 45378; J7120; J2405

== ENCOUNTER → 2024-06-10 | Outpatient (CLI) | payer MEDICARE, OTHER, SELFPAY ==
[2024-06-10 09:44] LABS: Absolute Lymphocyte Count 1.04 X10^3/uL (0.83-4.51); Absolute Neutrophil Count 2.2 X10^3/uL (2.0-7.7); Basophil# 0.05 X10^3/uL; Basophil% 1.2 % (0-1); Eosinophil# 0.26 X10^3/uL; Eosinophils% 6.3 % (0-5); Hematocrit 40.4 % (40-54); Hemoglobin 13.7 g/dL (13.0-16.5); Lymphocyte # 1.04 X10^3/ul (0.83-4.51); Lymphocyte % 25.4 % (19-41); Mean Corp Hgb Conc 33.9 g/dL (32-36); Mean Corpuscular Hgb 31.9 pg (27.0-32.0); Mean Platelet Vol. 9.4 fl (6.2-12.0); Monocyte# 0.56 X10^3/uL; Monocyte% 13.7 % (0-10); NRBC Flagged by Analyzer 0 % (0-5); Neutrophil # 2.19 X10^3/uL (2.7-7.7); Neutrophil % 53.4 % (47-70); Platelet Count 187 K/mm3 (150-450); RBC Distribution Width CV 12.5 % (11.6-14.6); RBC Distribution Width SD 43.4 fl (35.1-43.9); White Blood Count 4.1 K/mm3 (4.4-11.0)
[2024-06-10 10:22] LABS: ALB/GLOB Ratio 1.4 RATIO (0.9-2.4); AST(SGOT) 18 U/L (15-37); Alanine Aminotransfer ALT/SGPT 23 U/L (16-61); Albumin, Serum 3.8 g/dL (3.2-5.0); Alkaline Phosphatase 90 U/L (45-117); Anion Gap 4 (5-15); BUN 17 mg/dL (7-18); BUN/Creat Ratio 13.4 RATIO (10-20); Calcium,Total 8.9 mg/dL (8.5-10.1); Chloride 109 mmol/L (98-107); Creatinine, Serum 1.27 mg/dL (0.70-1.30); EST Glomerular Filtration Rate 60 mL/min (>60); Est Glom Filt Rate - Afr Amer 73 mL/min (>60); Globulin 2.8 g/dL (2.2-4.2); Glucose 73 mg/dL (74-106); Potassium 4.2 mmol/L (3.5-5.1); Protein, Total 6.6 g/dL (6.4-8.2); Sodium Level 142 mmol/L (136-145)
== END | disposition home or self-care (01) ==
LOC: LAB 09:08
PROVIDERS: PCP Family Medicine; Referring Provider Internal Medicine Rheumatology; Visit Provider Internal Medicine Rheumatology
DX: M06.4 Inflammatory polyarthropathy (principal); Z79.899 Other long term (current) drug therapy
CPT/HCPCS: 36415; 80053; 85025

== ENCOUNTER → 2024-12-01 | Outpatient (CLI) | payer MEDICARE, OTHER, SELFPAY | END | disposition home or self-care (01) | LOC: LAB 06:59 | PROVIDERS: PCP Family Medicine | DX: Z13.220 Encounter for screening for lipoid disorders (principal) ==

== ENCOUNTER → 2024-12-08 | Outpatient (CLI) | payer MEDICARE, OTHER, SELFPAY ==
[2024-12-08 08:10] LABS: Absolute Lymphocyte Count 1.24 X10^3/uL (0.83-4.51); Absolute Neutrophil Count 2.2 X10^3/uL (2.0-7.7); Basophil# 0.03 X10^3/uL; Basophil% 0.7 % (0-1); Eosinophil# 0.21 X10^3/uL; Eosinophils% 4.9 % (0-5); Hematocrit 40.2 % (40-54); Hemoglobin 13.5 g/dL (13.0-16.5); Lymphocyte # 1.24 X10^3/ul (0.83-4.51); Lymphocyte % 28.8 % (19-41); Mean Corp Hgb Conc 33.6 g/dL (32-36); Mean Corpuscular Hgb 31.3 pg (27.0-32.0); Mean Corpuscular Volume 93.3 fL (80-94); Mean Platelet Vol. 9.2 fl (6.2-12.0); Monocyte# 0.57 X10^3/uL; Monocyte% 13.3 % (0-10); NRBC Flagged by Analyzer 0 % (0-5); Neutrophil # 2.24 X10^3/uL (2.7-7.7); Neutrophil % 52.1 % (47-70); Platelet Count 196 K/mm3 (150-450); RBC Distribution Width CV 12.4 % (11.6-14.6); RBC Distribution Width SD 43.1 fl (35.1-43.9); Red Blood Count 4.31 M/mm3 (4.6-6.2); White Blood Count 4.3 K/mm3 (4.4-11.0)
[2024-12-08 08:51] LABS: Microalbumin,Random Urine < 12.0 mg/L (NO RANGE EST.)
[2024-12-08 09:14] LABS: ALB/GLOB Ratio 1.8 RATIO (0.9-2.4); AST(SGOT) 20 U/L (<=37); Alanine Aminotransfer ALT/SGPT 9 U/L (<=46); Albumin, Serum 4.2 g/dL (3.4-4.8); Alkaline Phosphatase 83 U/L (40-129); Anion Gap 9 (5-15); BUN 24 mg/dL (4-19); BUN/Creat Ratio 16.5 RATIO (10-20); CRP 3.12 mg/L (0.0-3.0); Calcium,Total 9.3 mg/dL (7.6-11.0); Carbon Dioxide 23.4 mmol/L (21.0-32.0); Chloride 105 mmol/L (98-108); Cholesterol 191 mg/dL (<=200); Creatinine, Serum 1.43 mg/dL (0.70-1.20); EST Glomerular Filtration Rate 54 (>60); Globulin 2.3 g/dL (2.2-4.2); Glucose 95 mg/dL (70-99); High Density Lipoprotein 53 mg/dL; Low Density Lipoprotein Calc. 116 mg/dL; Potassium 4.6 mmol/L (3.3-5.1); Protein, Total 6.5 g/dL (5.9-8.4); Sodium Level 138 mmol/L (133-145); Total Bilirubin 0.37 mg/dL (0.00-1.30); Triglycerides 112 mg/dL; Very Low Density Lipoprotein 22 mg/dL (5-40)
[2024-12-09 05:07] LABS: HOMOCYSTEINE 15.1 umol/L (0.0-17.2)
[2024-12-09 16:09] LABS: Anti-Cardiolipin Ab, IgG, Qn < 9 GPL U/mL (0-14); Anti-Cardiolipin Ab, IgM, Qn < 9 MPL U/mL (0-12)
== END | disposition home or self-care (01) ==
PROVIDERS: PCP Family Medicine; Referring Provider Family Medicine; Visit Provider Family Medicine
DX: N18.31 Chronic kidney disease, stage 3a (principal); E78.00 Pure hypercholesterolemia, unspecified
CPT/HCPCS: 36415; 80053; 80061; 82043; 83090; 85025; 86140; 86147